=== PATIENT | male | born 1965 | race Caucasian/White ===

== ENCOUNTER 2016-07-20 02:17 | Emergency (ER) | payer MEDICAID, OTHER ==
[~2016-07-20] VITALS: Ht 170.2 cm; Wt 84.4 kg
[~2016-07-20 02:17] MED LIST: AMLO2.5T PO; FLUO20CA4 PO; GABA600T PO; LEVEMIR SQ; ZANT150T2 PO
[2016-07-20 02:23] VITALS: BP 149/107; PULSE 92; RESP 12; TEMP 98; O2SAT 98
[2016-07-20 02:39] VITALS: PULSE 92; RESP 18; TEMP 98; O2SAT 98
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
[2016-07-20] MEDS ORDERED: KETOROLAC TROMETHAMINE 60 MG/2 ML (IM) VIAL IM ONE (03:00)
[2016-07-20] MEDS ORDERED: PENICILLIN V POTASSIUM 500 MG TAB PO ONE (03:00)
[2016-07-20] MEDS ORDERED: PENI500T PO (03:34)
[2016-07-20] MEDS ORDERED: HYDR-3533 PO (03:34)
== END 2016-07-20 03:47 | disposition home or self-care (01) ==
LOC: PHED 02:17
DX: K08.89 Other specified disorders of teeth and supporting structures (principal); K04.7 Periapical abscess without sinus; E11.9 Type 2 diabetes mellitus without complications; I10 Essential (primary) hypertension; E78.00 Pure hypercholesterolemia, unspecified; K21.9 Gastro-esophageal reflux disease without esophagitis; K85.90 Acute pancreatitis without necrosis or infection, unspecified; F10.10 Alcohol abuse, uncomplicated; Z79.4 Long term (current) use of insulin; Z87.442 Personal history of urinary calculi
CPT/HCPCS: 96372; 99282; J1885

== ENCOUNTER 2016-08-02 16:43 | Emergency (ER) | payer SELFPAY ==
[~2016-08-02] VITALS: Ht 170.2 cm; Wt 83.0 kg
[~2016-08-02 16:43] MED LIST changes: +HYDR-3533 PO; +PENI500T PO
[2016-08-02 16:45] VITALS: BP 139/99; PULSE 105; RESP 17; TEMP 97.8; O2SAT 97
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
[2016-08-02] MEDS ORDERED: CLIN1CAP6 PO (17:48)
[2016-08-02] MEDS ORDERED: KETOROLAC TROMETHAMINE 60 MG/2 ML (IM) VIAL IM ONE (18:00)
== END 2016-08-02 18:07 | disposition home or self-care (01) ==
LOC: PHEFT 16:43
DX: L03.011 Cellulitis of right finger (principal); M25.511 Pain in right shoulder; I25.2 Old myocardial infarction; I10 Essential (primary) hypertension; E11.9 Type 2 diabetes mellitus without complications; E78.5 Hyperlipidemia, unspecified; E78.00 Pure hypercholesterolemia, unspecified; K21.9 Gastro-esophageal reflux disease without esophagitis; Z72.0 Tobacco use
CPT/HCPCS: 10060; 96372; 99284; J1885

== ENCOUNTER 2017-02-20 13:52 | Emergency (ER) | payer SELFPAY ==
[~2017-02-20] VITALS: Ht 170.2 cm; Wt 84.0 kg
[~2017-02-20 13:52] MED LIST changes: -AMLO2.5T PO; +CLIN300C5 PO; -FLUO20CA4 PO; -LEVEMIR SQ
[2017-02-20 13:53] VITALS: BP 152/106; PULSE 118; RESP 14; TEMP 98; O2SAT 96
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
[2017-02-20] MEDS ORDERED: ACETAMINOPHEN/HYDROcodone 325 MG/5 MG TAB PO ONE (15:30)
[2017-02-20] MEDS ORDERED: CLINDAMYCIN PHOS 600 MG/4 ML VIAL IM ONE (16:15)
[2017-02-20] MEDS ORDERED: CLIN300C5 PO (16:15)
== END 2017-02-20 18:16 | disposition home or self-care (01) ==
LOC: NEPD 13:52
DX: L02.413 Cutaneous abscess of right upper limb (principal); B95.62 Methicillin resistant Staphylococcus aureus infection as the cause of diseases classified elsewhere
CPT/HCPCS: 10061; 86403; 87070; 87186; 87205; 96372

== ENCOUNTER 2017-03-21 13:44 | Inpatient (IN) | payer OTHER ==
[~2017-03-21] VITALS: Ht 170.2 cm; Wt 91.6 kg
[2017-03-21 14:05] VITALS: BP 158/113; PULSE 111; RESP 16; TEMP 98.7; O2SAT 96
[2017-03-21 14:07] VITALS: O2SAT 96
[2017-03-21] MEDS ORDERED: LEVEMIR SQ (14:12)
[2017-03-21] MEDS ORDERED: PREV15CA20 PO (14:12)
[2017-03-21] MEDS ORDERED: SODIUM CHLORIDE 0.9% FLUSH 10 ML FLUSH IVF PRN (14:15)
[2017-03-21 14:21] LABS: AUTOMATED NEUTROPHIL # 4.4 TH/MM3 (1.8-7.7); BASOPHIL # 0.1 TH/MM3 (0-0.2); BASOPHIL % 1.1 % (0.0-2.0); EOSINOPHIL % 0.5 % (0.0-4.0); HEMATOCRIT 45.5 % (39.0-51.0); HEMOGLOBIN 14.5 GM/DL (13.0-17.0); LYMPH % 25.6 % (9.0-44.0); LYMPHOCYTE # 1.7 TH/MM3 (1.0-4.8); MEAN CELL VOLUME 94.6 FL (80.0-100.0); MEAN CORPUSCULAR HEMOGLOBIN 30.2 PG (27.0-34.0); MEAN CORPUSCULAR HGB CONC 31.9 % (32.0-36.0); MEAN PLATELET VOLUME 9.1 FL (7.0-11.0); MONO % 6.6 % (0.0-8.0); MONOCYTE # 0.4 TH/MM3 (0-0.9); NEUT % 66.2 % (16.0-70.0); PLATELET COUNT 146 TH/MM3 (150-450); RED BLOOD COUNT 4.81 MIL/MM3 (4.50-5.90); WHITE BLOOD COUNT 6.6 TH/MM3 (4.0-11.0)
[2017-03-21] MEDS ORDERED: IOHEXOL 350 MG/ML 10 ML VIAL (for RAD DIAG) IVCONTRAST ONE (14:25)
[2017-03-21 14:29] LABS: CHLORIDE 107 MEQ/L (98-107); SODIUM (NA) 136 MEQ/L (136-145)
[2017-03-21 14:33] LABS: ALBUMIN 2.7 GM/DL (3.4-5.0); BICARBONATE 20.8 MEQ/L (21.0-32.0); BLOOD UREA NITROGEN 17 MG/DL (7-18); CALCIUM 8.4 MG/DL (8.5-10.1); GLUCOSE,RANDOM 366 MG/DL (74-106)
[2017-03-21 14:35] LABS: INTERNATIONAL NORMALIZED RATIO 1.1 RATIO; PROTHROMBIN TIME - PATIENT 11.5 SEC (9.8-11.6)
[2017-03-21 14:36] LABS: ALT (GPT) 40 U/L (12-78); AST (GOT) 31 U/L (15-37)
[2017-03-21 14:37] LABS: CREATININE 0.93 MG/DL (0.60-1.30); GLOMERULAR FILTRATION RATE 85 ML/MIN (>89)
[2017-03-21 14:38] LABS: TOTAL BILIRUBIN ADULT 1.5 MG/DL (0.2-1.0); TOTAL PROTEIN 6.4 GM/DL (6.4-8.2)
[2017-03-21 14:39] LABS: ALKALINE PHOSPHATASE 116 U/L (45-117)
--- NOTE | 2017-03-21 14:53 | RADRPT ---
EXAM DATE/TIME: 03/21/2017 14:25 [facility] COMPARISON: CHEST SINGLE AP, March 21, 2017, 14:39. INDICATIONS : Shortness of breath. IV CONTRAST: 100 cc Omnipaque 350 (iohexol) IV RADIATION DOSE: 17.00 CTDIvol (mGy) MEDICAL HISTORY : Cardiovascular disease. Hypertension. Hypercholesterolemia.GERD,Pancreatitis, Diverticulitis. SURGICAL HISTORY : Inguinal hernia repair. ENCOUNTER: Initial ACUITY: 2 days PAIN SCALE: 4/10 LOCATION: Bilateral chest TECHNIQUE: Volumetric scanning of the chest was performed using a pulmonary embolism protocol MIP images were re constructed. Using automated exposure control and adjustment of the mA and/or kV according to patien t size, radiation dose was kept as low as reasonably achievable to obtain optimal diagnostic quality images. DICOM format image data is available electronically for review and comparison. Follow-up recommendations for detected pulmonary nodules are based at a minimum on nodule size and pa tient risk factors according to Fleischner Society Guidelines. FINDINGS: Examination is limited for evaluation of PE due to suboptimal bolus of contrast and the patient' s congestive heart failure. Small bilateral pleural effusions are seen. There is no evidence for PE f or technique. Lungs are grossly clear. Coronary artery calcifications are seen typically seen with CA D and need to be evaluated clinically. cardiomegaly seen. CONCLUSION: Bilateral pleural effusions and no definite pulmonary embolus, however somewhat limited exam due to s uboptimal bolus opacification of the pulmonary arteries. Deb Wade MD on March 21, 2017 at 14:49 Board Certified Radiologist. This report was verified electronically.
--- NOTE | 2017-03-21 14:58 | RADRPT ---
EXAM DATE/TIME: 03/21/2017 14:39 [facility] COMPARISON: CHEST SINGLE AP, July 22, 2015, 11:30. INDICATIONS : Shortness of breath and chest pain since last night. MEDICAL HISTORY : None. SURGICAL HISTORY : None. ENCOUNTER: Initial ACUITY: 1 day PAIN SCORE: 5/10 LOCATION: Bilateral chest across chest FINDINGS: Moderate cardiomegaly is present not present previously. Lungs are clear. CONCLUSION: Moderate enlargement of the cardiac silhouette. Deb Wade MD on March 21, 2017 at 14:56 Board Certified Radiologist. This report was verified electronically.
[2017-03-21] MEDS ORDERED: MORPHINE SULFATE 4 MG/ML INJ IV PUSH ONE (15:00)
[2017-03-21] MEDS ORDERED: FUROSEMIDE 20 MG/2 ML VIAL IV PUSH ONE (15:00)
[2017-03-21] MEDS ORDERED: LORazepam 2 MG/ML VIAL IV PUSH ONE (15:00)
[2017-03-21] MEDS ORDERED: ASPIRIN 325 MG TAB PO ONE (15:00)
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
[2017-03-21 15:22] VITALS: BP 126/99; PULSE 112; RESP 16; O2SAT 98
[2017-03-21] MEDS ORDERED: ONDANSETRON HCL 4 MG/2 ML VIAL IV PUSH ONE (15:45)
[2017-03-21] MEDS ORDERED: ONDANSETRON HCL 4 MG/2 ML VIAL IV PUSH PRN (16:15)
[2017-03-21] MEDS ORDERED: DOCUSATE SODIUM 100 MG CAP PO PRN ×2 (16:15→16:45)
[2017-03-21] MEDS ORDERED: SODIUM CHLORIDE 0.9% FLUSH 10 ML FLUSH IV FLUSH PRN (16:15)
[2017-03-21] MEDS ORDERED: NITROGLYCERIN 0.4 MG SL 25 TABS/BTL SL PRN (16:15)
--- NOTE | 2017-03-21 16:26 | HHI.HP ---
[facility] Service [facility] Primary Care Physician No Primary Care Physician Admission Diagnosis CHF; Pleural Effusions; Hyperglycemia Diagnoses: (1) Acute on chronic systolic congestive heart failure Diagnosis: Principal (2) Non-ST elevated myocardial infarction Diagnosis: Principal (3) Cardiomyopathy Diagnosis: Principal (4) Elevated troponin Diagnosis: Principal (5) HLD (hyperlipidemia) Diagnosis: Secondary (6) Diabetes Diagnosis: Secondary Chief Complaint: Lower extremity edema Travel History International Travel<30 Days: No Contact w/Intl Traveler <30 Da: No Traveled to Known Affected Are: No History of Present Illness 51 year-old male with known history of hypertension, hyperlipidemia, cardiomyopathy, chronic systolic congestive heart failure, diabetes, chronic back pain, peripheral neuropathy who presented to hospital as of edema, chest pain, shortness of breath. Patient states that 5 days ago he notices bilateral lower extremities/feet swelling and they've progressively got worse and very painful. Throughout the last 5 days he has had progressive swelling Creeping all way up his body up until its to his neck at this time. States that he is having severe chest pain whenever he took a deep breath. He came to emergency department today because he thought he was having swelling in his neck and he could not breathe and had severe shortness of breath. Patient had workup done emergency department and found to have elevated troponin, elevated BNP. Chest x -ray do not indicate any bony edema or congestive pattern. However CT scan did show pleural effusions. Patient indicates that the pain that experiencing his chest was only whenever he took a deep breath. Denies any radiation to his neck , back, shoulder, arms. Denies any nausea, vomiting, lightheadedness, dizziness. Upon review medical records does appear the patient has been admitted to hospital multiple times for chest discomfort. His last cardiac catheterization documented here was July 2015 in which he had global cardiomyopathy with ejection fraction 40% with clean coronary arteries. Further workup does indicate the patient also was positive for amphetamines. Patient denied any amphetamine use. Does indicate that he smoked marijuana occasionally. However patient could be having myocardial ischemia/spasm from amphetamine use. ER physician recommended patient be admitted the hospital. Review of Systems Respiratory: COMPLAINS OF: Shortness of breath Cardiovascular: COMPLAINS OF: Lower Extremity Edema Except as stated in HPI: all other systems reviewed are Neg Past Family Social History Past Medical History Hypertension Hyperlipidemia Cardiomyopathy with ejection fraction 30-35% with catheterization indicating 40 % ejection fraction Diabetes Peripheral neuropathy Chronic back pain Anxiety/Depression GERD with Peguero's esophagus History of pancreatitis Past Surgical History 07/20/15 Cardiac catheterization with moderately reduced global left ventricular systolic function at EF approximate 40%, normal coronary arteries Right inguinal hernia repair Reported Medications Reported Meds & Active Scripts Active Gabapentin 600 Mg Tab 600 Mg PO TID Reported Prevacid (Lansoprazole) 15 Mg Capdr 15 Mg PO DAILY Levemir Inj (Insulin Detemir) 1,000 unit/ 10 ML Vial 1 Units SQ Do not mix with any other Insulin. Allergies: Coded Allergies: Sulfa (Sulfonamide Antibiotics) (Unverified Allergy, Severe, Anaphylaxis, 02/20/17) lisinopril (Unverified Allergy, Severe, 02/20/17) Family History Reviewed is significant for heart disease Social History Patient was not forthcoming, he indicates that he quit smoking when cigarettes for $0.65 a pack, he states that he does smoke marijuana occasionally. Urine drug screen was positive for amphetamines. Denies any alcohol use Physical Exam Vital Signs Vital Signs Date Time Temp Pulse Resp B/P (MAP) Pulse Ox O2 Delivery O2 Flow Rate FiO2 03/21/17 15:22 112 16 126/99 (108) 98 Nasal Cannula 2.00 03/21/17 14:07 96 Nasal Cannula 2.00 03/21/17 14:07 96 Nasal Cannula 2.00 03/21/17 14:07 Nasal Cannula 22.00 96 03/21/17 14:05 98.7 111 16 158/113 (128) 96 Physical Exam GENERAL: Well-developed, well-nourished, in no acute distress. alert and orientated HEENT: Head is normocephalic without any lesions or masses noted. Facial features are symmetric. Eyes: Pupils equal round reactive to light. Extraocular muscles are intact. Conjunctivae were clear. Oropharyngeal: Pharynx without any erythema edema. Tongue is midline without deviation. Buccal mucosa is moist without any masses or lesions NECK: Supple without any masses. Trachea midline no deviation. No JVD, no bruits are appreciated CARDIAC: Regular rhythm, regular rate. S1/S2 are heard. No murmurs gallops or rubs. LUNGS: Clear to auscultation bilaterally. No wheeze, rhonchi or rales. No use of accessory muscles on inspiration or expiration. ABDOMEN: Soft, nontender. Nondistended. Bowel sounds heard in all 4 quadrants. No organomegaly or masses. Negative rebound, negative guarding EXTREMITIES: 2+ pitting edema noted bilateral lower extremities, pulses are equal bilaterally. No cyanosis or clubbing NEUROLOGY: Mood and affect appear appropriate. Cranial nerves II through XII grossly intact. Muscle strength 5/5 in upper and lower extremities bilaterally. Deep tendon reflexes are 2+ in upper and lower extremities bilaterally. Laboratory Laboratory Tests Test 03/21/17 14:15 03/21/17 14:16 03/21/17 15:15 White Blood Count 6.6 Red Blood Count 4.81 Hemoglobin 14.5 Hematocrit 45.5 Mean Corpuscular Volume 94.6 Mean Corpuscular Hemoglobin 30.2 Mean Corpuscular Hemoglobin Concent 31.9 Red Cell Distribution Width 14.0 Platelet Count 146 Mean Platelet Volume 9.1 Neutrophils (%) (Auto) 66.2 Lymphocytes (%) (Auto) 25.6 Monocytes (%) (Auto) 6.6 Eosinophils (%) (Auto) 0.5 Basophils (%) (Auto) 1.1 Neutrophils # (Auto) 4.4 Lymphocytes # (Auto) 1.7 Monocytes # (Auto) 0.4 Eosinophils # (Auto) 0.0 Basophils # (Auto) 0.1 CBC Comment DIFF FINAL Differential Comment Prothrombin Time 11.5 Prothromb Time International Ratio 1.1 Activated Partial Thromboplast Time 26.4 Blood Urea Nitrogen 17 Creatinine 0.93 Random Glucose 366 Total Protein 6.4 Albumin 2.7 Calcium Level 8.4 Magnesium Level 2.0 Alkaline Phosphatase 116 Aspartate Amino Transf (AST/SGOT) 31 Alanine Aminotransferase (ALT/SGPT) 40 Total Bilirubin 1.5 Sodium Level 136 Potassium Level 4.4 Chloride Level 107 Carbon Dioxide Level 20.8 Anion Gap 8 Estimat Glomerular Filtration Rate 85 Total Creatine Kinase 115 Creatine Kinase MB 4.4 Troponin I 0.80 B-Type Natriuretic Peptide 1796 Blood Gas Puncture Site RT RADIAL Blood Gas Patient Temperature 98.6 Blood Gas HCO3 22 Blood Gas Base Excess -1.6 Blood Gas Oxygen Saturation 96 Arterial Blood pH 7.46 Arterial Blood Partial Pressure CO2 31 Arterial Blood Partial Pressure O2 107 Arterial Blood Oxygen Content 20.5 Arterial Blood Carboxyhemoglobin 1.8 Arterial Blood Methemoglobin 0.8 Blood Gas Hemoglobin 15.1 Oxygen Delivery Device NASAL CANNULA Blood Gas Liter Flow 2 Urine Opiates Screen NEG Urine Barbiturates Screen NEG Urine Amphetamines Screen POS Urine Benzodiazepines Screen NEG Urine Cocaine Screen NEG Urine Cannabinoids Screen NEG Result Diagram: 03/21/17 1415 03/21/17 1415 Imaging Last Impressions Chest X-Ray 03/21/17 1402 Signed Impressions: Service Date/Time: Tuesday, March 21, 2017 14:39 - CONCLUSION: Moderate enlargement of the cardiac silhouette. Deb Wade MD CT Angiography 03/21/17 1402 Signed Impressions: Service Date/Time: Tuesday, March 21, 2017 14:25 - CONCLUSION: Bilateral pleural effusions and no definite pulmonary embolus, however somewhat limited exam due to suboptimal bolus opacification of the pulmonary arteries. Deb Wade MD [place] VTE Risk Assessment Caprini VTE Risk Assessment: Mod/High Risk (score >= 2) Caprini Risk Assessment Model Point Value = 1 Point Value = 2 Point Value = 3 Point Value = 5 Age 41-60 Minor surgery BMI > 25 kg/m2 Swollen legs Varicose veins or History of unexplained or recurrent spontaneous Oral contraceptives or hormone replacement Sepsis (< 1 month) Serious lung disease, including pneumonia (< 1 month) Abnormal pulmonary function Acute myocardial infarction Congestive heart failure (< 1 month) History of inflammatory bowel disease Medical patient at bed rest Age 61-74 Arthroscopic surgery Major open surgery (> 45 min) Laparoscopic surgery (> 45 min) Malignancy Confined to bed (> 72 hours) Immobilizing plaster cast Central venous access Age >= 75 History of VTE Family history of VTE Factor V Leiden Prothrombin [id number] Lupus anticoagulant Anticardiolipin antibodies Elevated serum homocysteine Heparin-induced thrombocytopenia Other congenital or acquired thrombophilia Stroke (< 1 month) Elective arthroplasty Hip, pelvis, or leg fracture Acute spinal cord injury (< 1 month) Prophylaxis Regimen Total Risk Factor Score Risk Level Prophylaxis Regimen 0-1 Low Early ambulation 2 Moderate Order ONE of the following: *Sequential Compression Device (SCD) *Heparin 5000 units SQ BID 3-4 Higher Order ONE of the following medications: *Heparin 5000 units SQ TID *Enoxaparin/Lovenox 40 mg SQ daily (WT < 150 kg, CrCl > 30 mL/min) *Enoxaparin/Lovenox 30 mg SQ daily (WT < 150 kg, CrCl > 10-29 mL/min) *Enoxaparin/Lovenox 30 mg SQ BID (WT < 150 kg, CrCl > 30 mL/min) AND/OR *Sequential Compression Device (SCD) 5 or more Highest Order ONE of the following medications: *Heparin 5000 units SQ TID (Preferred with Epidurals) *Enoxaparin/Lovenox 40 mg SQ daily (WT < 150 kg, CrCl > 30 mL/min) *Enoxaparin/Lovenox 30 mg SQ daily (WT < 150 kg, CrCl > 10-29 mL/min) *Enoxaparin/Lovenox 30 mg SQ BID (WT < 150 kg, CrCl > 30 mL/min) AND *Sequential Compression Device (SCD) Assessment and Plan Assessment and Plan Acute on chronic systolic congestive heart failure Patient presents with progressive swelling, elevated BNP, chest x-ray does not indicate any edema, CT does show pleural effusion Patient with severe cardiomyopathy with previous documented ejection fraction anywhere from 30-40% We'll continue her Lasix 40 mg IV every 12 hours We'll start beta scott and cannot start KSENIA inhibitor patient is allergic to lisinopril Obtain echocardiogram Strict input and output Elevated troponin, possible non-ST elevated myocardial infarction Continue trend cardiac enzymes and serial EKGs start heparin IV per protocol Start aspirin, beta scott, nitroglycerin Consult cardiology for further recommendations Check lipid panel Previous cardiac catheterization july 2015 indicating global hypokinesis with ejection fraction 40%. However clean coronary arteries Diabetes Accu-Cheks with sliding scale insulin Hemoglobin A1c Chronic back pain, peripheral neuropathy Resume gabapentin DVT prevention patient will be on heparin IV Physician Certification 2 Midnight Certification Type: Admission for Inpatient Services Order for Inpatient Services The services are ordered in accordance with Medicare regulations or non- Medicare payer requirements, as applicable. In the case of services not specified as inpatient-only, they are appropriately provided as inpatient services in accordance with the 2-midnight benchmark. Estimated LOS (days): 3 days is the estimated time the patient will need to remain in the hospital, assuming treatment plan goals are met and no additional complications. Post-Hospital Plan: Not yet determined Ramírez Samano Mar 21, 2017 16:26
[2017-03-21] MEDS ORDERED: DEXTROSE 50% IN WATER 50 ML VIAL(D50) IV PUSH PRN (16:30)
[2017-03-21] MEDS ORDERED: GLUCAGON 1 MG/ML VIAL OTHER PRN (16:30)
[2017-03-21] MEDS ORDERED: MAGNESIUM HYDROXIDE SUSP 30 ML CUP PO PRN (16:45)
[2017-03-21] MEDS ORDERED: HEPARIN SODIUM - IV 10,000 UNITS/10 ML VIAL IV PUSH ONE (17:00)
[2017-03-21] MEDS: INSULIN ASPART SUPPLEMENTAL SCALE SQ SCH ×2 (17:00→21:07)
[2017-03-21] MEDS: HEPARIN-D5W 25,000 U/250 ML 250 ML IV SCH (17:17)
--- NOTE | 2017-03-21 17:24 | MB ---
cc: HUY BRUMFIELD MD DATE OF CONSULTATION: 03/21/2017. REASON FOR CONSULTATION: Acute on chronic systolic congestive heart failure. HISTORY OF PRESENT ILLNESS: The patient is a pleasant 51-year-old gentleman with a history of chronic systolic suggestive heart failure who has not been taking any medications over at least the last several days but probably longer, and he says only medications he was taking was for the diabetes. He denies taking any cardiac medications. He presents with a week or so of worsening shortness of breath particularly on lying down. He was found to be in clinical congestive heart failure and admitted. His last echocardiogram showed ejection fraction of 30-35% and he had also had a cardiac catheterization done about a year and a half ago which confirmed a nonischemic cardiomyopathy with normal coronary arteries. The patient is a very difficult historian due to recent administration of narcotic and anxiolytic medications, but he denies other symptoms besides shortness of breath. PAST MEDICAL HISTORY: 1. Nonischemic cardiomyopathy as above. 2. Medication noncompliance. 3. Diabetes. 4. Chronic back pain. CURRENT MEDICATIONS: 1. Aspirin 325 milligrams daily. 2. Subcutaneous heparin. 3. Coreg 3.125 milligrams twice a day. 4. Lipitor 10 milligrams at bedtime. 5. Lasix 40 milligrams IV twice a day. ALLERGIES: 1. SULFA. 2. LISINOPRIL. PHYSICAL EXAMINATION: VITAL SIGNS: Afebrile, pulse 112, respiratory rate 16, blood pressure 129/99, satting 98% on two liters. GENERAL: In general, a pleasant well-appearing gentleman who is somnolent due to recent medications. NECK: No jugular venous distention. LUNGS: Decreased breath sounds in all zacarias. CARDIOVASCULAR: Regular rate and rhythm. No murmurs appreciated. ABDOMEN: Benign. EXTREMITIES: 1+ edema bilaterally. LABORATORY DATA: White count 6.6, hematocrit 45.5, platelet count 146,000. Sodium 136, potassium 4.4, chloride 107, bicarbonate 20.8, BUN 17, creatinine 0.93, glucose 366. Troponin 0.8. BNP is 1796. Toxicology is positive for amphetamines. EKGS: EKG shows sinus tachycardia with possible old inferior infarct and nonspecific S-T changes. IMPRESSION: 1. CHF. The patient has acute on chronic systolic suggestive heart failure in the setting of amphetamine use and medication noncompliance. He has been started on IV Lasix. I will add losartan to his regimen, but his long-term prognosis remains quite poor with his medication noncompliance, low ejection fraction and drug use. Further recommendations based on his clinical course. Thank you again for the opportunity to participate in this patient's care. MD MADHU Ellison/ASHLY /5:04 PM /5:12 PM
[2017-03-21] MEDS: NITROGLYCERIN 2% OINT 1 GM PACKET TOP SCH (18:00)
[2017-03-21 18:05] VITALS: BP 138/98
[2017-03-21] MEDS: GABAPENTIN 300 MG CAP PO SCH (18:26)
[2017-03-21] MEDS: FUROSEMIDE 40 MG/4 ML VIAL IVP SCH (18:27)
[2017-03-21 20:00] VITALS: BP 130/107; PULSE 103; RESP 20; TEMP 98.7; O2SAT 97
[2017-03-21 20:19] LABS: TROPONIN I 0.77 NG/ML (0.02-0.05)
[2017-03-21] MEDS: SODIUM CHLORIDE 0.9% FLUSH 10 ML FLUSH IV FLUSH SCH (21:07)
[2017-03-21] MEDS: CARVEDILOL 3.125 MG TAB PO SCH (21:07)
[2017-03-21] MEDS: ATORVASTATIN 10 MG TAB PO SCH (21:07)
[2017-03-21] MEDS: POTASSIUM CHLORIDE 10 MEQ CONTROLLED RELEASE TAB PO SCH (21:07)
[2017-03-21] MEDS ORDERED: HEPARIN SODIUM - IV 10,000 UNITS/10 ML VIAL IV PUSH PRN ×2 (22:15)
[2017-03-21 23:00] VITALS: PULSE 93
[2017-03-22] VITALS (9 sets, daily range): BP systolic 125–143; BP diastolic 96–107; PULSE 88–105; RESP 18–22; TEMP 96.3–98.2; O2SAT 95–99
[2017-03-22] MEDS: NITROGLYCERIN 2% OINT 1 GM PACKET TOP SCH ×4 (00:05→17:23)
[2017-03-22 02:33] LABS: TROPONIN I 0.76 NG/ML (0.02-0.05)
[2017-03-22 07:40] LABS: AUTOMATED NEUTROPHIL # 4.2 TH/MM3 (1.8-7.7); BASOPHIL # 0.1 TH/MM3 (0-0.2); BASOPHIL % 1.2 % (0.0-2.0); EOSINOPHIL # 0.1 TH/MM3 (0-0.4); EOSINOPHIL % 0.9 % (0.0-4.0); HEMOGLOBIN 14.6 GM/DL (13.0-17.0); LYMPH % 31.7 % (9.0-44.0); LYMPHOCYTE # 2.3 TH/MM3 (1.0-4.8); MEAN CELL VOLUME 94.6 FL (80.0-100.0); MEAN CORPUSCULAR HEMOGLOBIN 30.6 PG (27.0-34.0); MEAN CORPUSCULAR HGB CONC 32.4 % (32.0-36.0); MONO % 6.9 % (0.0-8.0); MONOCYTE # 0.5 TH/MM3 (0-0.9); NEUT % 59.3 % (16.0-70.0); PLATELET COUNT 154 TH/MM3 (150-450); RED BLOOD COUNT 4.76 MIL/MM3 (4.50-5.90); RED CELL DISTRIBUTION WIDTH 14.1 % (11.6-17.2); WHITE BLOOD COUNT 7.2 TH/MM3 (4.0-11.0)
[2017-03-22 07:53] LABS: CALCIUM 8.5 MG/DL (8.5-10.1)
[2017-03-22 07:54] LABS: BICARBONATE 25.5 MEQ/L (21.0-32.0)
[2017-03-22] MEDS: INSULIN ASPART SUPPLEMENTAL SCALE SQ SCH ×4 (08:00→21:46)
--- NOTE | 2017-03-22 08:00 | HHI.PR ---
Subjective Remarks Patient seen and examined today for follow-up on acute on chronic systolic congestive heart failure, elevated troponin, possible non-ST elevated myocardial infarction, amphetamine-induced vasospasm/ischemia. Patient lying in bed comfortable. Patient still complaining of shortness of breath. Denying any chest pain. Vital signs are stable, afebrile. No signs of hypoxia. Objective Vital Signs Date Time Temp Pulse Resp B/P (MAP) Pulse Ox O2 Delivery O2 Flow Rate FiO2 03/22/17 07:33 103 03/22/17 04:00 97.4 92 20 143/98 (113) 97 03/22/17 02:00 98 Nasal Cannula 2.00 03/22/17 00:00 97.7 90 20 125/96 (106) 98 03/21/17 23:00 93 03/21/17 20:00 98.7 103 20 130/107 (115) 97 03/21/17 18:05 101 18 138/98 (111) 97 3.00 03/21/17 15:22 112 16 126/99 (108) 98 Nasal Cannula 2.00 03/21/17 14:07 96 Nasal Cannula 2.00 03/21/17 14:07 96 Nasal Cannula 2.00 03/21/17 14:07 Nasal Cannula 22.00 96 03/21/17 14:05 98.7 111 16 158/113 (128) 96 I/O 03/21/17 03/21/17 03/21/17 03/22/17 03/22/17 03/22/17 07:00 15:00 23:00 07:00 15:00 23:00 Intake Total 480 ml Output Total 500 ml 650 ml Balance -500 ml -170 ml Intake Oral 480 ml Output Urine Total 500 ml 650 ml # Voids 1 Result Diagram: 03/22/17 0650 03/21/17 1415 Imaging Last Impressions Chest X-Ray 03/21/17 1402 Signed Impressions: Service Date/Time: Tuesday, March 21, 2017 14:39 - CONCLUSION: Moderate enlargement of the cardiac silhouette. Deb Wade MD CT Angiography 03/21/17 1402 Signed Impressions: Service Date/Time: Tuesday, March 21, 2017 14:25 - CONCLUSION: Bilateral pleural effusions and no definite pulmonary embolus, however somewhat limited exam due to suboptimal bolus opacification of the pulmonary arteries. Deb Wade MD Objective Remarks GENERAL: Well-developed, well-nourished, in no acute distress. alert and orientated HEENT: Head is normocephalic without any lesions or masses noted. Facial features are symmetric. Eyes: Extraocular muscles are intact. Conjunctivae were clear. NECK: Supple without any masses. Trachea midline no deviation. No JVD, CARDIAC: Regular rhythm, regular rate. S1/S2 are heard. No murmurs gallops or rubs. LUNGS: Clear to auscultation bilaterally. No wheeze, rhonchi or rales. No use of accessory muscles on inspiration or expiration. ABDOMEN: Soft, nontender. Nondistended. Bowel sounds heard in all 4 quadrants. No organomegaly or masses. Negative rebound, negative guarding EXTREMITIES: 2+ pitting edema noted in the lower extremities bilaterally, pulses are equal bilaterally. No cyanosis or clubbing NEUROLOGY: Mood and affect appear appropriate. Cranial nerves II through XII grossly intact. Moving all extremities, speech is clear A/P Assessment and Plan Acute on chronic systolic congestive heart failure Patient presents with progressive swelling, elevated BNP, chest x-ray does not indicate any edema, CT does show pleural effusion Patient with severe cardiomyopathy with previous documented ejection fraction anywhere from 30-40% Continue her Lasix 40 mg IV every 12 hours Continue Coreg Complaint Investigations Officer started patient on losartan and recommending continuation of Lasix Awaiting echocardiogram Strict input and output, according to records no significant fluid output or weight loss Poor prognosis secondary to medication noncompliance, severe cardiomyopathy, drug use Elevated troponin, possible non-ST elevated myocardial infarction, amphetamine induced ischemia/spasm Cardiac enzymes remain elevated and plateaued Serial EKGs were reviewed and show right bundle branch block without any changes Continue heparin IV per protocol Continue aspirin, beta scott, ARB, nitroglycerin, Statin Consulted cardiology for further recommendations Lipid panel is pending Previous cardiac catheterization july 2015 indicating global hypokinesis with ejection fraction 40%. However clean coronary arteries Diabetes Accu-Cheks with sliding scale insulin Hemoglobin A1c pending Elevated TSH, rule out hypothyroidism, sick euthyroid We'll check free T3/free T4 Chronic back pain, peripheral neuropathy Continue gabapentin DVT prevention Continue heparin IV Discharge Planning 24-48 hours depending on response to treatment and clearance by cardiology Ramírez Samano Mar 22, 2017 08:00
[2017-03-22 08:08] LABS: CREATININE 0.97 MG/DL (0.60-1.30)
[2017-03-22] MEDS: GABAPENTIN 300 MG CAP PO SCH ×3 (08:08→17:23)
[2017-03-22] MEDS: POTASSIUM CHLORIDE 10 MEQ CONTROLLED RELEASE TAB PO SCH ×2 (08:08→21:34)
[2017-03-22] MEDS: LOSARTAN 25 MG TAB PO SCH (08:08)
[2017-03-22] MEDS: CARVEDILOL 3.125 MG TAB PO SCH ×2 (08:08→21:34)
[2017-03-22] MEDS: FUROSEMIDE 40 MG/4 ML VIAL IVP SCH ×2 (08:08→17:23)
[2017-03-22] MEDS: SODIUM CHLORIDE 0.9% FLUSH 10 ML FLUSH IV FLUSH SCH ×2 (08:08→21:00)
[2017-03-22] MEDS: ASPIRIN EC 325 MG TABEC PO SCH (08:08)
[2017-03-22 10:51] LABS: CHOLESTEROL/ HDL RATIO 2.79 RATIO; FREE T3 2.18 PG/ML (2.18-3.98); FREE T4 0.92 NG/DL (0.76-1.46); HDL CHOLESTEROL 53.3 MG/DL (40.0-60.0)
[2017-03-22 12:46] LABS: HEMOGLOBIN A1C 11.5 % (4.3-6.0)
--- NOTE | 2017-03-22 12:48 | EKG ---
Date Performed: 03/21/2017 Time Performed: 13:54:46 PTAGE: 51 years EKG: SINUS TACHYCARDIA INDETERMINATE AXIS RIGHT BUNDLE BRANCH BLOCK ABNORMAL ECG Compared to PREVIOUS TRACING , sinus rate has increased. Previously seen precordial ST changes have i mproved. PREVIOUS TRACIN07/22/2015 12.41 DOCTOR: Scott Solis Interpretating Date/Time 03/22/2017 12:47:25
--- NOTE | 2017-03-22 12:48 | EKG ---
Date Performed: 03/21/2017 Time Performed: 19:45:42 PTAGE: 51 years EKG: Sinus rhythm INDETERMINATE AXIS RIGHT BUNDLE BRANCH BLOCK ABNORMAL ECG Compared to PREVIOUS TRACING , sinus rate is slower. PREVIOUS TRACIN03/21/2017 13.54 DOCTOR: Scott Solis Interpretating Date/Time 03/22/2017 12:48:00
--- NOTE | 2017-03-22 12:48 | EKG ---
Date Performed: 03/22/2017 Time Performed: 01:36:56 PTAGE: 51 years EKG: Sinus rhythm INDETERMINATE AXIS RIGHT BUNDLE BRANCH BLOCK LEFT POSTERIOR FASCICULAR BLOCK ABNORMAL ECG Since PREVIOUS TRACING , no significant change noted PREVIOUS TRACIN03/21/2017 19.45 DOCTOR: Scott Solis Interpretating Date/Time 03/22/2017 12:48:19
--- NOTE | 2017-03-22 16:53 | ECHRPT ---
Indication: CARDIOMYOPATHY CONCLUSIONS The left ventricular systolic function is severely reduced with an estimated ejection fraction in th e range of 20-25%. Normal left ventricular size. Wall thickness is normal. There is global left ventricular dysfunction. The right ventricle is mildly dilated. The right atrial size is mldj-xn-yxpdmpruzf dilated. Bynmo-tf-gfzy mitral valve regurgitation. There is mild tricuspid valve regurgitation. Trivial pulmonary valve regurgitation. BP: 135 / 97 HR: 110 Rhythm: MEASUREMENTS (Male / Female) Normal Values Technical Quality:Good 2D ECHO LV Diastolic Diameter PLAX 5.2 cm 4.2 - 5.9 / 3.9 - 5.3 cm LV Systolic Diameter PLAX 4.6 cm IVS Diastolic Thickness 1.1 cm 0.6 - 1.0 / 0.6 - 0.9 cm LVPW Diastolic Thickness 1.0 cm 0.6 - 1.0 / 0.6 - 0.9 cm LV Relative Wall Thickness 0.4 RV Internal Dim ED PLAX 4.2 cm LVOT Diameter 1.9 cm LA Systolic Diameter LX 4.0 cm 3.0 - 4.0 / 2.7 - 3.8 cm LV Ejection Fraction MOD 4C 27.8 % LV Cardiac Index MOD 4C 1475.1 cm/minm LV Ejection Fraction 4C AL 30.2 % LV Cardiac Index 4C AL 1662.9 cm/minm M-MODE Aortic Root Diameter MM 3.0 cm LA Systolic Diameter MM 3.8 cm LA Ao Ratio MM 1.3 AV Cusp Separation MM 1.5 cm DOPPLER AV Peak Velocity 92.3 cm/s AV Peak Gradient 3.4 mmHg LVOT Peak Velocity 53.3 cm/s LVOT Peak Gradient 1.1 mmHg AV Area Cont Eq pk 1.6 cm MV Area PHT 4.7 cm Mitral E Point Velocity 73.5 cm/s Mitral A Point Velocity 73.1 cm/s Mitral E to A Ratio 1.0 LV E' Lateral Velocity 4.9 cm/s Mitral E to LV E' Lateral Ratio 15.1 TR Peak Velocity 323.0 cm/s TR Peak Gradient 41.7 mmHg Right Atrial Pressure 10.0 mmHg Pulmonary Artery Systolic Pressu 51.7 mmHg Right Ventricular Systolic Press 51.7 mmHg FINDINGS LEFT VENTRICLE The left ventricular systolic function is severely reduced with an estimated ejection fraction in th e range of 20-25%. Normal left ventricular size. Wall thickness is normal. There is global left ventricular dysfunction. RIGHT VENTRICLE The right ventricle is mildly dilated. LEFT ATRIUM The left atrial size is normal. RIGHT ATRIUM The right atrial size is eart-wt-uilgjqabbg dilated. ATRIAL SEPTUM Normal atrial septal thickness without atrial level shunting by limited color doppler interrogation. AORTA The aortic root and proximal ascending aorta are normal in size on limited imaging. MITRAL VALVE Structurally normal mitral valve. Meagd-dk-gsuf mitral valve regurgitation. AORTIC VALVE Trileaflet aortic valve. No aortic valve stenosis or regurgitation. TRICUSPID VALVE Structurally normal tricuspid valve. There is mild tricuspid valve regurgitation. PULMONARY VALVE Trivial pulmonary valve regurgitation. VESSELS The inferior vena cava is dilated. PERICARDIUM No pericardial effusion. Scott Solis MD (Electronically Signed) Final Date:22 March 2017 16:51
[2017-03-22] MEDS: CALCIUM CARBONATE 500 MG CHEWABLE TAB CHEW PRN ×2 (17:24→21:34)
[2017-03-22] MEDS: HEPARIN-D5W 25,000 U/250 ML 250 ML IV SCH (17:27)
--- NOTE | 2017-03-22 18:04 | PD.CARD.PN ---
Subjective Subjective Remarks Pt resting in bed comfortably, but says he still cannot get a full breath, though improved from yesterday. Objective Medications Current Medications Medications (Trade) Dose Ordered Sig/Marybel Route Start Time Stop Time Status Last Admin (NS Flush) 2 ml BID IV FLUSH 03/21/17 21:00 (NS Flush) 2 ml UNSCH PRN IV FLUSH 03/21/17 16:15 (Ecotrin Ec) 325 mg DAILY PO 03/22/17 09:00 03/22/17 08:08 (Nitroglycerin 2% Oint) 0.5 inch Q6HR TOP 03/21/17 18:00 03/22/17 17:23 (Nitrostat Sl) 0.4 mg Q5M PRN SL 03/21/17 16:15 (Tylenol) 650 mg Q6H PRN PO 03/21/17 16:15 (Colace) 100 mg BID PRN PO 03/21/17 16:15 (Xanax) 0.25 mg Q8H PRN PO 03/21/17 16:15 (Zofran Inj) 4 mg Q6H PRN IV PUSH 03/21/17 16:15 (Coreg) 3.125 mg BID PO 03/21/17 21:00 03/22/17 08:08 (Lipitor) 10 mg HS PO 03/21/17 21:00 03/21/17 21:07 (Heparin Inj) 5,000 units UNSCH PRN IV PUSH 03/21/17 22:15 (Heparin Inj) 2,500 units UNSCH PRN IV PUSH 03/21/17 22:15 Heparin Sodium/ Dextrose 250 ml @ 10 mls/hr TITRATE IV 03/21/17 17:00 03/22/17 17:27 (Lasix Inj) 40 mg BID@09,18 IVP 03/21/17 18:00 03/22/17 17:23 (KCl) 10 meq BID PO 03/21/17 21:00 03/22/17 08:08 (Neurontin) 600 mg TID PO 03/21/17 18:00 03/22/17 17:23 (D50w (Vial) Inj) 50 ml UNSCH PRN IV PUSH 03/21/17 16:30 (Glucagon Inj) 1 mg UNSCH PRN OTHER 03/21/17 16:30 (NovoLOG SUPPLEMENTAL SCALE) 1 ACHS SLIDING SCALE SQ 03/21/17 17:00 03/22/17 17:00 (Milk Of Magnesia Liq) 30 ml DAILY PRN PO 03/21/17 16:45 (Tums Chew) 1,000 mg TID PRN CHEW 03/21/17 16:45 03/22/17 17:24 (Cozaar) 25 mg DAILY PO 03/22/17 09:00 03/22/17 08:08 Vital Signs / I&O Vital Signs Date Time Temp Pulse Resp B/P (MAP) Pulse Ox O2 Delivery O2 Flow Rate FiO2 03/22/17 16:00 98.2 98 22 141/106 (118) 96 03/22/17 09:24 99 Nasal Cannula 2.00 03/22/17 07:57 88 18 135/97 (110) 99 03/22/17 07:33 103 03/22/17 04:00 97.4 92 20 143/98 (113) 97 03/22/17 02:00 98 Nasal Cannula 2.00 03/22/17 00:00 97.7 90 20 125/96 (106) 98 03/21/17 23:00 93 03/21/17 20:00 98.7 103 20 130/107 (115) 97 03/21/17 18:05 101 18 138/98 (111) 97 3.00 I/O 03/21/17 03/21/17 03/21/17 03/22/17 03/22/17 03/22/17 07:00 15:00 23:00 07:00 15:00 23:00 Intake Total 480 ml 950 ml Output Total 500 ml 650 ml 1050 ml Balance -500 ml -170 ml -100 ml Intake Oral 480 ml 950 ml Output Urine Total 500 ml 650 ml 1050 ml # Voids 1 # Bowel Movements 0 Physical Exam GENERAL: This is a well-nourished, well-developed patient, in no apparent distress. CARDIOVASCULAR: Regular rate and rhythm without murmurs, gallops, or rubs. RESPIRATORY: Clear to auscultation. Breath sounds equal bilaterally. No wheezes , rales, or rhonchi. GASTROINTESTINAL: Abdomen soft, non-tender, nondistended. Normal active bowel sounds MUSCULOSKELETAL: Extremities without clubbing, cyanosis, or edema. NEURO: Alert & Oriented x4 to person, place, time, situation. Moves all ext x4 Laboratory Laboratory Tests Test 03/21/17 19:50 03/21/17 22:43 03/22/17 01:45 03/22/17 05:30 Hemoglobin A1c 11.5 % Total Creatine Kinase 102 U/L 100 U/L Creatine Kinase MB 4.0 NG/ML Troponin I 0.77 NG/ML 0.76 NG/ML Thyroid Stimulating Hormone 3rd Gen 9.990 uIU/ML Activated Partial Thromboplast Time 43.2 SEC 40.1 SEC Test 03/22/17 06:50 White Blood Count 7.2 TH/MM3 Red Blood Count 4.76 MIL/MM3 Hemoglobin 14.6 GM/DL Hematocrit 45.0 % Mean Corpuscular Volume 94.6 FL Mean Corpuscular Hemoglobin 30.6 PG Mean Corpuscular Hemoglobin Concent 32.4 % Red Cell Distribution Width 14.1 % Platelet Count 154 TH/MM3 Mean Platelet Volume 9.0 FL Neutrophils (%) (Auto) 59.3 % Lymphocytes (%) (Auto) 31.7 % Monocytes (%) (Auto) 6.9 % Eosinophils (%) (Auto) 0.9 % Basophils (%) (Auto) 1.2 % Neutrophils # (Auto) 4.2 TH/MM3 Lymphocytes # (Auto) 2.3 TH/MM3 Monocytes # (Auto) 0.5 TH/MM3 Eosinophils # (Auto) 0.1 TH/MM3 Basophils # (Auto) 0.1 TH/MM3 CBC Comment DIFF FINAL Differential Comment Blood Urea Nitrogen 18 MG/DL Creatinine 0.97 MG/DL Random Glucose 183 MG/DL Calcium Level 8.5 MG/DL Sodium Level 139 MEQ/L Potassium Level 4.2 MEQ/L Chloride Level 106 MEQ/L Carbon Dioxide Level 25.5 MEQ/L Anion Gap 8 MEQ/L Estimat Glomerular Filtration Rate 81 ML/MIN Triglycerides Level 98 MG/DL Cholesterol Level 149 MG/DL LDL Cholesterol 76 MG/DL HDL Cholesterol 53.3 MG/DL Cholesterol/HDL Ratio 2.79 RATIO Free Thyroxine 0.92 NG/DL Free Triiodothyronine (T3) pg/dL 2.18 PG/ML Imaging Last Impressions Chest X-Ray 03/21/17 1402 Signed Impressions: Service Date/Time: Tuesday, March 21, 2017 14:39 - CONCLUSION: Moderate enlargement of the cardiac silhouette. Deb Wade MD CT Angiography 03/21/17 1402 Signed Impressions: Service Date/Time: Tuesday, March 21, 2017 14:25 - CONCLUSION: Bilateral pleural effusions and no definite pulmonary embolus, however somewhat limited exam due to suboptimal bolus opacification of the pulmonary arteries. Deb Wade MD Assessment and Plan Problem List: (1) Systolic CHF ICD Codes: I50.20 - Unspecified systolic (congestive) heart failure Plan: continue current tx (2) NICM (nonischemic cardiomyopathy) ICD Codes: I42.8 - Other cardiomyopathies Plan: Restarted cozar and BB (3) Noncompliance ICD Codes: Z91.19 - Patient's noncompliance with other medical treatment and regimen Plan: Advised compliance at length; makes prognosis quite poor. (4) Elevated troponin ICD Codes: R79.89 - Other specified abnormal findings of blood chemistry Status: Acute Plan: Due to chf, no cad by recent cath (5) Tobacco use ICD Codes: Z72.0 - Tobacco use Status: Acute Problem Qualifiers (1) Systolic CHF: Qualified Codes: I50.23 - Acute on chronic systolic (congestive) heart failure Scott Solis MD Mar 22, 2017 18:04
[2017-03-22] MEDS: ATORVASTATIN 10 MG TAB PO SCH (21:34)
[2017-03-23] VITALS (9 sets, daily range): BP systolic 99–131; BP diastolic 71–95; PULSE 89–104; RESP 18–24; TEMP 96.5–98.9; O2SAT 91–98
[2017-03-23] MEDS: NITROGLYCERIN 2% OINT 1 GM PACKET TOP SCH ×4 (00:26→19:21)
[2017-03-23] MEDS: ALPRAZolam 0.25 MG TAB PO PRN ×2 (06:33→19:28)
[2017-03-23] MEDS: INSULIN ASPART SUPPLEMENTAL SCALE SQ SCH ×6 (08:00→21:00)
[2017-03-23] MEDS: GABAPENTIN 300 MG CAP PO SCH ×3 (09:36→19:21)
[2017-03-23] MEDS: FUROSEMIDE 40 MG/4 ML VIAL IVP SCH ×2 (09:36→19:20)
[2017-03-23] MEDS: LOSARTAN 25 MG TAB PO SCH (09:37)
[2017-03-23] MEDS: SODIUM CHLORIDE 0.9% FLUSH 10 ML FLUSH IV FLUSH SCH ×2 (09:37→20:57)
[2017-03-23] MEDS: POTASSIUM CHLORIDE 10 MEQ CONTROLLED RELEASE TAB PO SCH ×2 (09:37→20:57)
[2017-03-23] MEDS: CARVEDILOL 3.125 MG TAB PO SCH ×2 (09:37→20:57)
[2017-03-23] MEDS: ASPIRIN EC 325 MG TABEC PO SCH (09:37)
--- NOTE | 2017-03-23 10:03 | HHI.PR ---
Subjective Remarks In bed feels tired. No n/v/d/c. Denies chest pain, sob improved. Will do O2 walking test Objective Vitals Vital Signs Date Time Temp Pulse Resp B/P (MAP) Pulse Ox O2 Delivery O2 Flow Rate FiO2 03/23/17 08:00 96.5 89 24 131/84 (100) 98 03/23/17 07:35 93 Nasal Cannula 2.00 03/23/17 06:30 97 Nasal Cannula 2.00 03/23/17 00:00 96.8 99 18 131/95 (107) 96 03/22/17 20:00 97 Nasal Cannula 2.00 03/22/17 20:00 96.3 105 19 137/107 (117) 97 03/22/17 20:00 101 03/22/17 19:35 95 Nasal Cannula 2.00 03/22/17 16:00 98.2 98 22 141/106 (118) 96 I/O 03/22/17 03/22/17 03/22/17 03/23/17 03/23/17 03/23/17 07:00 15:00 23:00 07:00 15:00 23:00 Intake Total 480 ml 950 ml 79 ml 82 ml Output Total 650 ml 1050 ml 2475 ml 400 ml Balance -170 ml -100 ml 79 ml -2393 ml -400 ml Intake Oral 480 ml 950 ml IV Total 79 ml 82 ml Output Urine Total 650 ml 1050 ml 2475 ml 400 ml # Bowel Movements 0 Result Diagram: 03/22/17 0650 03/22/17 0650 Imaging Last Impressions Chest X-Ray 03/21/17 1402 Signed Impressions: Service Date/Time: Tuesday, March 21, 2017 14:39 - CONCLUSION: Moderate enlargement of the cardiac silhouette. Deb Wade MD CT Angiography 03/21/17 1402 Signed Impressions: Service Date/Time: Tuesday, March 21, 2017 14:25 - CONCLUSION: Bilateral pleural effusions and no definite pulmonary embolus, however somewhat limited exam due to suboptimal bolus opacification of the pulmonary arteries. Deb Wade MD Objective Remarks GENERAL: Well-developed, well-nourished, in no acute distress. alert and orientated HEENT: Head is normocephalic without any lesions or masses noted. Facial features are symmetric. Eyes: Extraocular muscles are intact. Conjunctivae were clear. NECK: Supple without any masses. Trachea midline no deviation. No JVD, CARDIAC: Regular rhythm, regular rate. S1/S2 are heard. No murmurs gallops or rubs. LUNGS: Clear to auscultation bilaterally. No wheeze, rhonchi or rales. No use of accessory muscles on inspiration or expiration. ABDOMEN: Soft, nontender. Nondistended. Bowel sounds heard in all 4 quadrants. No organomegaly or masses. Negative rebound, negative guarding EXTREMITIES: 2+ pitting edema noted in the lower extremities bilaterally, pulses are equal bilaterally. No cyanosis or clubbing NEUROLOGY: Mood and affect appear appropriate. Cranial nerves II through XII grossly intact. Moving all extremities, speech is clear A/P Problem List: (1) Acute on chronic systolic congestive heart failure ICD Code: I50.23 - Acute on chronic systolic (congestive) heart failure (2) Non-ST elevated myocardial infarction ICD Code: I21.4 - Non-ST elevation (NSTEMI) myocardial infarction (3) Cardiomyopathy ICD Code: I42.9 - Cardiomyopathy, unspecified (4) Elevated troponin ICD Code: R79.89 - Other specified abnormal findings of blood chemistry Status: Acute (5) HLD (hyperlipidemia) ICD Code: E78.5 - Hyperlipidemia, unspecified Status: Acute (6) Diabetes ICD Code: E11.9 - Type 2 diabetes mellitus without complications Assessment and Plan Acute on chronic systolic congestive heart failure. Patient presents with progressive swelling, elevated BNP, chest x-ray does not indicate any edema, CT does show pleural effusion Patient with severe cardiomyopathy with previous documented ejection fraction anywhere from 30-40% Continue her Lasix 40 mg IV every 12 hours Continue Coreg Junior Software Engineer started patient on losartan and recommending continuation of Lasix Echocardiogram with low EF 20 %. Strict input and output, according to records no significant fluid output or weight loss Poor prognosis secondary to medication noncompliance, severe cardiomyopathy, drug use Elevated troponin, possible non-ST elevated myocardial infarction, amphetamine induced ischemia/spasm Cardiac enzymes remain elevated and plateaued Serial EKGs were reviewed and show right bundle branch block without any changes Continue heparin IV per protocol Continue aspirin, beta scott, ARB, nitroglycerin, Statin Consulted cardiology for further recommendations Lipid panel is pending Previous cardiac catheterization july 2015 indicating global hypokinesis with ejection fraction 40%. However clean coronary arteries Diabetes Accu-Cheks with sliding scale insulin Hemoglobin A1c pending Elevated TSH, rule out hypothyroidism, sick euthyroid We'll check free T3/free T4 Chronic back pain, peripheral neuropathy Continue gabapentin DVT prevention Continue heparin IV Discharge Planning Improving. patient need compliance with meds. To follow up as OP with PCP and consultants Deepika Hugo MD Mar 23, 2017 10:03
--- NOTE | 2017-03-23 10:10 | PD.CARD.PN ---
Subjective Subjective Remarks Pt resting in bed comfortably, but says he still cannot get a full breath, though improved from yesterday; his symptoms do seem a bit out of proportion given his diuresis Objective Medications Current Medications Medications (Trade) Dose Ordered Sig/Marybel Route Start Time Stop Time Status Last Admin (NS Flush) 2 ml BID IV FLUSH 03/21/17 21:00 03/23/17 09:37 (NS Flush) 2 ml UNSCH PRN IV FLUSH 03/21/17 16:15 (Ecotrin Ec) 325 mg DAILY PO 03/22/17 09:00 03/23/17 09:37 (Nitroglycerin 2% Oint) 0.5 inch Q6HR TOP 03/21/17 18:00 03/23/17 06:08 (Nitrostat Sl) 0.4 mg Q5M PRN SL 03/21/17 16:15 (Tylenol) 650 mg Q6H PRN PO 03/21/17 16:15 (Colace) 100 mg BID PRN PO 03/21/17 16:15 (Xanax) 0.25 mg Q8H PRN PO 03/21/17 16:15 03/23/17 06:33 (Zofran Inj) 4 mg Q6H PRN IV PUSH 03/21/17 16:15 (Coreg) 3.125 mg BID PO 03/21/17 21:00 03/23/17 09:37 (Lipitor) 10 mg HS PO 03/21/17 21:00 03/22/17 21:34 (Heparin Inj) 5,000 units UNSCH PRN IV PUSH 03/21/17 22:15 (Heparin Inj) 2,500 units UNSCH PRN IV PUSH 03/21/17 22:15 Heparin Sodium/ Dextrose 250 ml @ 10 mls/hr TITRATE IV 03/21/17 17:00 03/22/17 17:27 (Lasix Inj) 40 mg BID@09,18 IVP 03/21/17 18:00 03/23/17 09:36 (KCl) 10 meq BID PO 03/21/17 21:00 03/23/17 09:37 (Neurontin) 600 mg TID PO 03/21/17 18:00 03/23/17 09:36 (D50w (Vial) Inj) 50 ml UNSCH PRN IV PUSH 03/21/17 16:30 (Glucagon Inj) 1 mg UNSCH PRN OTHER 03/21/17 16:30 (NovoLOG SUPPLEMENTAL SCALE) 1 ACHS SLIDING SCALE SQ 03/21/17 17:00 03/23/17 09:59 (Milk Of Magnesia Liq) 30 ml DAILY PRN PO 03/21/17 16:45 (Tums Chew) 1,000 mg TID PRN CHEW 03/21/17 16:45 03/22/17 21:34 (Cozaar) 25 mg DAILY PO 03/22/17 09:00 03/23/17 09:37 Vital Signs / I&O Vital Signs Date Time Temp Pulse Resp B/P (MAP) Pulse Ox O2 Delivery O2 Flow Rate FiO2 03/23/17 08:00 96.5 89 24 131/84 (100) 98 03/23/17 07:35 93 Nasal Cannula 2.00 03/23/17 06:30 97 Nasal Cannula 2.00 03/23/17 00:00 96.8 99 18 131/95 (107) 96 03/22/17 20:00 97 Nasal Cannula 2.00 03/22/17 20:00 96.3 105 19 137/107 (117) 97 03/22/17 20:00 101 03/22/17 19:35 95 Nasal Cannula 2.00 03/22/17 16:00 98.2 98 22 141/106 (118) 96 I/O 03/22/17 03/22/17 03/22/17 03/23/17 03/23/17 03/23/17 07:00 15:00 23:00 07:00 15:00 23:00 Intake Total 480 ml 950 ml 79 ml 82 ml Output Total 650 ml 1050 ml 2475 ml 400 ml Balance -170 ml -100 ml 79 ml -2393 ml -400 ml Intake Oral 480 ml 950 ml IV Total 79 ml 82 ml Output Urine Total 650 ml 1050 ml 2475 ml 400 ml # Bowel Movements 0 Physical Exam GENERAL: This is a well-nourished, well-developed patient, in no apparent distress. CARDIOVASCULAR: Regular rate and rhythm without murmurs, gallops, or rubs. RESPIRATORY: Clear to auscultation. Breath sounds equal bilaterally. No wheezes , rales, or rhonchi. GASTROINTESTINAL: Abdomen soft, non-tender, nondistended. Normal active bowel sounds MUSCULOSKELETAL: Extremities without clubbing, cyanosis, or edema. NEURO: Alert & Oriented x4 to person, place, time, situation. Moves all ext x4 Imaging Last Impressions Chest X-Ray 03/21/17 1402 Signed Impressions: Service Date/Time: Tuesday, March 21, 2017 14:39 - CONCLUSION: Moderate enlargement of the cardiac silhouette. Deb Wade MD CT Angiography 03/21/17 1402 Signed Impressions: Service Date/Time: Tuesday, March 21, 2017 14:25 - CONCLUSION: Bilateral pleural effusions and no definite pulmonary embolus, however somewhat limited exam due to suboptimal bolus opacification of the pulmonary arteries. Deb Wade MD Assessment and Plan Problem List: (1) Systolic CHF ICD Codes: I50.20 - Unspecified systolic (congestive) heart failure Plan: still notes dyspnea so will continue current therapy, will repeat bnp tomorrow (2) NICM (nonischemic cardiomyopathy) ICD Codes: I42.8 - Other cardiomyopathies Plan: Restarted cozar and BB (3) Noncompliance ICD Codes: Z91.19 - Patient's noncompliance with other medical treatment and regimen (4) Elevated troponin ICD Codes: R79.89 - Other specified abnormal findings of blood chemistry Status: Acute (5) Tobacco use ICD Codes: Z72.0 - Tobacco use Status: Acute (6) Shortness of breath ICD Codes: R06.02 - Shortness of breath Plan: will get resp treatments Problem Qualifiers (1) Systolic CHF: Qualified Codes: I50.23 - Acute on chronic systolic (congestive) heart failure Scott Solis MD Mar 23, 2017 10:10
[2017-03-23] MEDS ORDERED: RESP: ALBUTEROL 0.63 MG/3 ML NEB (PRN) NEB (10:15)
[2017-03-23] MEDS: ACETAMINOPHEN 325 MG TAB PO PRN ×2 (13:49→19:28)
[2017-03-23] MEDS: ATORVASTATIN 10 MG TAB PO SCH (20:57)
[2017-03-24] VITALS: BP 113/83; PULSE 95; RESP 20; TEMP 96.5; O2SAT 93
[2017-03-24] MEDS: NITROGLYCERIN 2% OINT 1 GM PACKET TOP SCH ×2 (00:12→05:41)
[2017-03-24] MEDS: ACETAMINOPHEN 325 MG TAB PO PRN (01:46)
[2017-03-24 04:00] VITALS: BP 131/92; PULSE 94; RESP 20; TEMP 96.4; O2SAT 96
[2017-03-24 06:21] LABS: BICARBONATE 32.8 MEQ/L (21.0-32.0); CALCIUM 8.3 MG/DL (8.5-10.1)
[2017-03-24 07:15] VITALS: O2SAT 96
[2017-03-24 08:00] VITALS: BP 120/113; PULSE 97; RESP 20; TEMP 96.7; O2SAT 96
[2017-03-24] MEDS: ALPRAZolam 0.25 MG TAB PO PRN (08:08)
[2017-03-24] MEDS: GABAPENTIN 300 MG CAP PO SCH ×2 (08:08→13:22)
[2017-03-24] MEDS: CARVEDILOL 3.125 MG TAB PO SCH (08:09)
[2017-03-24] MEDS: LOSARTAN 25 MG TAB PO SCH (08:09)
[2017-03-24] MEDS: ASPIRIN EC 325 MG TABEC PO SCH (08:09)
[2017-03-24] MEDS: FUROSEMIDE 40 MG/4 ML VIAL IVP SCH (08:10)
[2017-03-24] MEDS: POTASSIUM CHLORIDE 10 MEQ CONTROLLED RELEASE TAB PO SCH (08:10)
[2017-03-24] MEDS: SODIUM CHLORIDE 0.9% FLUSH 10 ML FLUSH IV FLUSH SCH (08:12)
[2017-03-24] MEDS: CALCIUM CARBONATE 500 MG CHEWABLE TAB CHEW PRN (08:19)
[2017-03-24] MEDS: INSULIN ASPART SUPPLEMENTAL SCALE SQ SCH ×2 (08:34→13:27)
[2017-03-24 09:00] VITALS: BP 99/71
--- NOTE | 2017-03-24 10:23 | HHI.PR ---
Subjective Remarks Follow-up congestive heart failure, and NSTEMI and cardiomyopathy. Patient seen and examined lying in bed comfortably, states he had a bout of anxiety overnight, Xanax has helped, patient states that he gets short of breath with his anxiety. Patient expresses concern regarding disease process and inability to get medications in the outpatient setting due to no insurance. Denies any pain. Denies any shortness of breath at this time. Vital signs are stable. Afebrile. Objective Vitals Vital Signs Date Time Temp Pulse Resp B/P (MAP) Pulse Ox O2 Delivery O2 Flow Rate FiO2 03/24/17 08:00 96.7 97 20 120/113 (115) 96 03/24/17 07:15 96 21 03/24/17 04:00 96.4 94 20 131/92 (105) 96 03/24/17 00:00 96.5 95 20 113/83 (93) 93 03/23/17 23:00 94 03/23/17 21:40 94 21 03/23/17 20:00 98.9 100 20 99/71 (80) 94 03/23/17 15:59 97.5 98 20 113/82 (92) 93 03/23/17 14:49 19 03/23/17 13:23 91 21 03/23/17 12:00 98.1 99 20 120/83 (95) 96 I/O 03/23/17 03/23/17 03/23/17 03/24/17 03/24/17 03/24/17 06:59 14:59 22:59 06:59 14:59 22:59 Intake Total 82 ml 1010 ml 580 ml 480 ml Output Total 2475 ml 3700 ml 1000 ml Balance -2393 ml -2690 ml 580 ml -520 ml Intake Oral 960 ml 580 ml 480 ml IV Total 82 ml 50 ml Output Urine Total 2475 ml 3700 ml 1000 ml # Voids 3 # Bowel Movements 1 0 0 Result Diagram: 03/22/17 0650 03/24/17 0535 Imaging Last Impressions Chest X-Ray 03/21/171401 Signed Impressions: Service Date/Time: Tuesday, March 21, 2017 14:39 - CONCLUSION: Moderate enlargement of the cardiac silhouette. Deb Wade MD CT Angiography 03/21/17 1402 Signed Impressions: Service Date/Time: Tuesday, March 21, 2017 14:25 - CONCLUSION: Bilateral pleural effusions and no definite pulmonary embolus, however somewhat limited exam due to suboptimal bolus opacification of the pulmonary arteries. Deb Wade MD Objective Remarks GENERAL: Well-nourished, well-developed patient in NAD. SKIN: Warm and dry. No rash. HEAD: Normocephalic. Atraumatic. EYES: Pupils equal and round. No scleral icterus. No injection or drainage. ENT: No nasal bleeding or discharge. Mucous membranes pink and moist. NECK: Supple. Trachea midline. CARDIOVASCULAR: Regular rate and rhythm. S1, S2 noted. No murmur appreciated. RESPIRATORY: No accessory muscle use. Clear to auscultation. Breath sounds equal bilaterally. GASTROINTESTINAL: Abdomen soft, non-tender, nondistended. Normoactive bowel sounds x4. MUSCULOSKELETAL: No obvious deformities. Extremities without clubbing, cyanosis , or edema. NEUROLOGICAL: Awake and alert. No obvious cranial nerve deficits. Motor grossly within normal limits. 5/5 muscle strength in bilateral upper and lower extremities. Normal speech. PSYCHIATRIC: Appropriate mood and affect; insight and judgment normal. A/P Problem List: (1) Acute on chronic systolic congestive heart failure ICD Code: I50.23 - Acute on chronic systolic (congestive) heart failure (2) Non-ST elevated myocardial infarction ICD Code: I21.4 - Non-ST elevation (NSTEMI) myocardial infarction (3) Cardiomyopathy ICD Code: I42.9 - Cardiomyopathy, unspecified (4) Elevated troponin ICD Code: R79.89 - Other specified abnormal findings of blood chemistry Status: Acute (5) HLD (hyperlipidemia) ICD Code: E78.5 - Hyperlipidemia, unspecified Status: Acute (6) Diabetes ICD Code: E11.9 - Type 2 diabetes mellitus without complications Assessment and Plan Acute on chronic systolic congestive heart failure. Patient presents with progressive swelling, elevated BNP, chest x-ray does not indicate any edema, CT does show pleural effusion. Repeat BNP today 965. 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 Strict input and output, according to records no significant fluid output or weight loss Poor prognosis secondary to medication noncompliance, severe cardiomyopathy, drug use Elevated troponin, possible non-ST elevated myocardial infarction, amphetamine induced ischemia/spasm Cardiac enzymes remain elevated and plateaued Serial EKGs were reviewed and show right bundle branch block without any changes Continue heparin IV per protocol Continue aspirin, beta scott, ARB, nitroglycerin, Statin Consulted cardiology for further recommendations, appreciate input. Lipid panel unremarkable. Previous cardiac catheterization july 2015 indicating global hypokinesis with ejection fraction 40%. However clean coronary arteries. Diabetes Accu-Cheks with sliding scale insulin. Will start on long-acting insulin. Continue to monitor blood sugar trends. Hemoglobin A1c 11.5 Elevated TSH, rule out hypothyroidism, sick euthyroid Free T3/free T4 normal. Chronic back pain, peripheral neuropathy Continue gabapentin DVT prevention Continue heparin IV Lyndsay Fishman Mar 24, 2017 10:23
[2017-03-24 12:00] VITALS: BP 108/78; PULSE 108; RESP 20; TEMP 96.9; O2SAT 95
[2017-03-24] MEDS ORDERED: LEVOTHYROXINE SODIUM 25 MCG TAB PO SCH (14:00)
[2017-03-24] MEDS ORDERED: INSULIN DETEMIR 100 UNITS/ML VIAL SQ SCH (21:00)
--- NOTE | 2017-04-04 11:24 | PQ ---
Physician Query Response Document PATIENT: TOM ALBARRAN : 1965 ADMIT DATE: 03/21/2017 3:30 PM DISCH DATE: 03/24/2017 3:45 PM RESPONDING PROVIDER #: [email or web address] QUERY TEXT: Clarification of Clinical Diagnostic Findings Please clarify documentation or clinical relevance for the clinical / diagnostic findings or whether those are insignificant or unable to be further specified. PLEASE CLARIFY IF NSTEMI WAS RULED IN, RULED OUT OR MORE APPROPRIATE DIAGNOSIS MADE. Your prompt response is appreciated, please do not hesitate to contact the CDI/Coding Hotline with an y questions, comments and/or concerns you may have at [phone]. [phone]. The patient's Clinical Indicators include: PATIENT ADMITTED WITH CHEST PAIN, ELEVATED TROPONIN, POSSIBLE NSTEMI, CHF EXACERBATION. TROPONIN: 0.80, 0.77, 0.76 EKGs: 03/21 1ST: SINUS TACHYCARDIA INDETERMINATE AXIS RIGHT BUNDLE BRANCH BLOCK ABNORMAL ECG, 2ND: I NDETERMINATE AXIS RIGHT BUNDLE BRANCH BLOCK ABNORMAL PREVIOUS TRACING. 03/22: INDETERMINATE AXIS RIGH T BUNDLE BRANCH BLOCK LEFT POSTERIOR FASCICULAR BLOCK ABNORMAL ECG Since PREVIOUS TRACING, no signifi cant change noted. PROG NOTE 03/23: A/P LISTS #2 NSTEMI, BUT IN NOTES, STATES POSSIBLE NSTEMI, AMPHETAMINE INDUCED ISC HEMIA/SPASM. [place] NOT DOCUMENTED BY CORRECTIONAL SUPERVISOR. Query created by: Marya Lees on 03/30/2017 3:53 PM RESPONSE TEXT: Patient with elevated troponins , cardiomyopathy with severely reduced EF 20% Patient did live AMA Electronically signed by: Deepika Hugo MD 04/04/2017 11:21 AM
--- NOTE | 2017-04-04 11:26 | HHI.DS ---
Discharge Summary Admission Date Mar 21, 2017 at 15:30 Discharge Date: Mar 24, 2017 Admitting Diagnosis CHF; Pleural Effusions; Hyperglycemia (1) Acute on chronic systolic congestive heart failure ICD Code: I50.23 - Acute on chronic systolic (congestive) heart failure Diagnosis: Principal (2) Non-ST elevated myocardial infarction ICD Code: I21.4 - Non-ST elevation (NSTEMI) myocardial infarction Diagnosis: Principal (3) Cardiomyopathy ICD Code: I42.9 - Cardiomyopathy, unspecified Diagnosis: Principal (4) Elevated troponin ICD Code: R79.89 - Other specified abnormal findings of blood chemistry Diagnosis: Principal Status: Acute (5) HLD (hyperlipidemia) ICD Code: E78.5 - Hyperlipidemia, unspecified Diagnosis: Secondary Status: Acute (6) Diabetes ICD Code: E11.9 - Type 2 diabetes mellitus without complications Diagnosis: Secondary Procedures none Brief History - From Admission 51 year-old male with known history of hypertension, hyperlipidemia, cardiomyopathy, chronic systolic congestive heart failure, diabetes, chronic back pain, peripheral neuropathy who presented to hospital as of edema, chest pain, shortness of breath. Patient states that 5 days ago he notices bilateral lower extremities/feet swelling and they've progressively got worse and very painful. Throughout the last 5 days he has had progressive swelling Creeping all way up his body up until its to his neck at this time. States that he is having severe chest pain whenever he took a deep breath. He came to emergency department today because he thought he was having swelling in his neck and he could not breathe and had severe shortness of breath. Patient had workup done emergency department and found to have elevated troponin, elevated BNP. Chest x -ray do not indicate any bony edema or congestive pattern. However CT scan did show pleural effusions. Patient indicates that the pain that experiencing his chest was only whenever he took a deep breath. Denies any radiation to his neck , back, shoulder, arms. Denies any nausea, vomiting, lightheadedness, dizziness. Upon review medical records does appear the patient has been admitted to hospital multiple times for chest discomfort. His last cardiac catheterization documented here was July 2015 in which he had global cardiomyopathy with ejection fraction 40% with clean coronary arteries. Further workup does indicate the patient also was positive for amphetamines. Patient denied any amphetamine use. Does indicate that he smoked marijuana occasionally. However patient could be having myocardial ischemia/spasm from amphetamine use. ER physician recommended patient be admitted the hospital. Imaging Last Impressions Chest X-Ray 03/21/171401 Signed Impressions: Service Date/Time: Tuesday, March 21, 2017 14:39 - CONCLUSION: Moderate enlargement of the cardiac silhouette. Deb Wade MD CT Angiography 03/21/171401 Signed Impressions: Service Date/Time: Tuesday, March 21, 2017 14:25 - CONCLUSION: Bilateral pleural effusions and no definite pulmonary embolus, however somewhat limited exam due to suboptimal bolus opacification of the pulmonary arteries. Deb Wade MD PE at Discharge GENERAL: Well-nourished, well-developed patient in NAD. SKIN: Warm and dry. No rash. HEAD: Normocephalic. Atraumatic. EYES: Pupils equal and round. No scleral icterus. No injection or drainage. ENT: No nasal bleeding or discharge. Mucous membranes pink and moist. NECK: Supple. Trachea midline. CARDIOVASCULAR: Regular rate and rhythm. S1, S2 noted. No murmur appreciated. RESPIRATORY: No accessory muscle use. Clear to auscultation. Breath sounds equal bilaterally. GASTROINTESTINAL: Abdomen soft, non-tender, nondistended. Normoactive bowel sounds x4. MUSCULOSKELETAL: No obvious deformities. Extremities without clubbing, cyanosis , or edema. NEUROLOGICAL: Awake and alert. No obvious cranial nerve deficits. Motor grossly within normal limits. 5/5 muscle strength in bilateral upper and lower extremities. Normal speech. PSYCHIATRIC: Appropriate mood and affect; insight and judgment normal. Hospital Course 51 year-old male with known history of hypertension, hyperlipidemia, cardiomyopathy, chronic systolic congestive heart failure, diabetes, chronic back pain, peripheral neuropathy who presented to hospital as of edema, chest pain, shortness of breath. Patient with Acute on chronic systolic congestive heart failure. Cardiomyopathy with severely reduced EF 20%, Elevated troponin Previous cardiac catheterization july 2015 indicating global hypokinesis with ejection fraction 40%. However clean coronary arteries. Received diuretics, home meds restarted. Not cleared by cardiology for DC NOTE: PATIENT LEFT AMA Pt Condition on Discharge: Stable Discharge Disposition: Discharge Home (left AMA) Discharge Time: <= 30 minutes Deepika Hugo MD Apr 04, 2017 11:26
== END 2017-03-24 15:45 | disposition left against medical advice (07) | DRG 293 ==
LOC: PHED 13:44 → PHEDA 15:30 → PH3B 18:02
PROVIDERS: ADMIT Hospitalist; ATTEND Hospitalist
DX: I11.0 Hypertensive heart disease with heart failure (principal); E11.42 Type 2 diabetes mellitus with diabetic polyneuropathy; I42.8 Other cardiomyopathies; I50.23 Acute on chronic systolic (congestive) heart failure; R74.9 Abnormal serum enzyme level, unspecified; G89.29 Other chronic pain; M54.9 Dorsalgia, unspecified; I45.10 Unspecified right bundle-branch block; K21.9 Gastro-esophageal reflux disease without esophagitis; I25.2 Old myocardial infarction; E78.5 Hyperlipidemia, unspecified; F12.90 Cannabis use, unspecified, uncomplicated; F15.10 Other stimulant abuse, uncomplicated; F32.9 Major depressive disorder, single episode, unspecified; F41.9 Anxiety disorder, unspecified; Z72.0 Tobacco use; Z79.4 Long term (current) use of insulin; Z88.2 Allergy status to sulfonamides; Z91.14 Patient's other noncompliance with medication regimen; Z91.19 Patient's noncompliance with other medical treatment and regimen
CPT/HCPCS: 36600; 71045; 71275; 80048; 80053; 80061; 80307; 82550; 82552; 82805; 82948; 83036; 83735; 83880; 84439; 84443; 84481; 84484; 85025; 85610; 85730; 93005; 93306; 94150; 94618; 94664; 96374; 96375; J1644; J1815; J1940; J2060; J2270; J2405; Q9967

== ENCOUNTER 2017-04-19 18:01 | Emergency (ER) | payer OTHER ==
[~2017-04-19] VITALS: Ht 170.2 cm; Wt 83.0 kg
[~2017-04-19 18:01] MED LIST changes: -CLIN300C5 PO; -HYDR-3533 PO; +LEVEMIR SQ; -PENI500T PO; +PREV15CA20 PO; -ZANT150T2 PO
[2017-04-19 18:05] VITALS: BP 131/97; PULSE 114; RESP 18; TEMP 98.8; O2SAT 97
[2017-04-19] MEDS ORDERED: AMOXICILLIN (TRIHYDRATE) 500 MG CAP PO ONE (19:00)
[2017-04-19] MEDS ORDERED: ACETAMINOPHEN/HYDROcodone 325 MG/5 MG TAB PO ONE (19:00)
[2017-04-19] MEDS ORDERED: AMOX500C PO (19:01)
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
== END 2017-04-19 19:29 | disposition home or self-care (01) ==
LOC: PHEFT 18:01
DX: H66.91 Otitis media, unspecified, right ear (principal); F41.9 Anxiety disorder, unspecified; E78.00 Pure hypercholesterolemia, unspecified; E11.9 Type 2 diabetes mellitus without complications; K21.9 Gastro-esophageal reflux disease without esophagitis; I10 Essential (primary) hypertension; I21.9 Acute myocardial infarction, unspecified; Z87.19 Personal history of other diseases of the digestive system; Z87.442 Personal history of urinary calculi
CPT/HCPCS: 99283

== ENCOUNTER 2017-06-03 20:39 | Emergency (ER) | payer SELFPAY ==
[~2017-06-03] VITALS: Ht 170.2 cm; Wt 92.0 kg
[~2017-06-03 20:39] MED LIST changes: +AMOX500C PO
[2017-06-03 20:42] VITALS: BP 143/76; PULSE 115; RESP 18; TEMP 97.8; O2SAT 98
[2017-06-03] MEDS ORDERED: SODIUM CHLORIDE 0.9% FLUSH 10 ML FLUSH IV FLUSH PRN (21:30)
[2017-06-03] MEDS ORDERED: MORPHINE SULFATE 4 MG/ML INJ IV PUSH ONE (21:30)
[2017-06-03] MEDS ORDERED: METR-1 PO (21:32)
[2017-06-03] MEDS ORDERED: CYCL10TA PO (21:32)
[2017-06-03] MEDS ORDERED: BUSP5TAB PO (21:32)
[2017-06-03] MEDS ORDERED: FURO1TAB62 PO (21:32)
[2017-06-03] MEDS ORDERED: METO25TA3 PO (21:32)
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
[2017-06-03 21:45] LABS: AUTOMATED NEUTROPHIL # 3.9 TH/MM3 (1.8-7.7); BASOPHIL # 0.1 TH/MM3 (0-0.2); BASOPHIL % 1.6 % (0.0-2.0); EOSINOPHIL % 0.8 % (0.0-4.0); HEMATOCRIT 40.9 % (39.0-51.0); HEMOGLOBIN 13.7 GM/DL (13.0-17.0); LYMPH % 23.7 % (9.0-44.0); LYMPHOCYTE # 1.5 TH/MM3 (1.0-4.8); MEAN CELL VOLUME 94.8 FL (80.0-100.0); MEAN CORPUSCULAR HEMOGLOBIN 31.7 PG (27.0-34.0); MEAN CORPUSCULAR HGB CONC 33.5 % (32.0-36.0); MEAN PLATELET VOLUME 8.7 FL (7.0-11.0); MONO % 9.1 % (0.0-8.0); MONOCYTE # 0.6 TH/MM3 (0-0.9); NEUT % 64.8 % (16.0-70.0); PLATELET COUNT 155 TH/MM3 (150-450); RED BLOOD COUNT 4.31 MIL/MM3 (4.50-5.90); RED CELL DISTRIBUTION WIDTH 13.6 % (11.6-17.2); WHITE BLOOD COUNT 6.1 TH/MM3 (4.0-11.0)
[2017-06-03] MEDS ORDERED: SODIUM CHLORID 0.9% 500 ML INJ 500 ML IV ONE (21:45)
[2017-06-03 21:53] LABS: CHLORIDE 102 MEQ/L (98-107); SODIUM (NA) 138 MEQ/L (136-145)
[2017-06-03 21:56] LABS: CALCIUM 8.6 MG/DL (8.5-10.1)
[2017-06-03 21:57] LABS: ALBUMIN 2.9 GM/DL (3.4-5.0); BICARBONATE 29.3 MEQ/L (21.0-32.0); BLOOD UREA NITROGEN 24 MG/DL (7-18); GLUCOSE,RANDOM 218 MG/DL (74-106)
[2017-06-03 21:59] LABS: INTERNATIONAL NORMALIZED RATIO 1.2 RATIO; PROTHROMBIN TIME - PATIENT 11.8 SEC (9.8-11.6)
[2017-06-03 22:00] LABS: ALT (GPT) 72 U/L (12-78); AST (GOT) 44 U/L (15-37); GLOMERULAR FILTRATION RATE 49 ML/MIN (>89)
[2017-06-03 22:01] LABS: TOTAL BILIRUBIN ADULT 0.7 MG/DL (0.2-1.0); TOTAL PROTEIN 6.6 GM/DL (6.4-8.2)
[2017-06-03 22:02] LABS: ALKALINE PHOSPHATASE 160 U/L (45-117)
[2017-06-03 22:12] VITALS: BP 152/85; PULSE 106; RESP 20; O2SAT 94
--- NOTE | 2017-06-03 22:43 | RADRPT ---
EXAM DATE/TIME: 06/03/2017 22:14 [facility] COMPARISON: CT PULMONARY ANGIOGRAM, March 21, 2017, 14:25. INDICATIONS : Middle abdomen swelling and pain. ORAL CONTRAST: No oral contrast ingested. RADIATION DOSE: 22.46 CTDIvol (mGy) MEDICAL HISTORY : Congestive heart failure. Cardiovascular disease Renal calculi.Diverticulitis. Inguinal hernia. Diabe leodan. Pancreatitis. SURGICAL HISTORY : Inguinal hernia repair. ENCOUNTER: Initial ACUITY: 2 days PAIN SCALE: 8/10 LOCATION: middle abdomen TECHNIQUE: Volumetric scanning of the abdomen and pelvis was performed. Using automated exposure control and ad justment of the mA and/or kV according to patient size, radiation dose was kept as low as reasonably achievable to obtain optimal diagnostic quality images. DICOM format image data is available electro nically for review and comparison. FINDINGS: Trace effusions are evident mild cardiomegaly. There is moderate ascites. As the focal 3.6 cm mass in the right lobe of the liver. This isn't well evaluated on today's exam is without contrast.. The spleen and pancreas are unremarkable The adrenals and kidneys appear normal Moderate stool is seen throughout the colon There is no adenopathy. Scattered diverticula are seen in the sigmoid colon. Prostate is prominent. Bladder is unremarkable . Degenerative changes are present in the lumbar spine. CONCLUSION: Trace ascites with mass right lobe of the liver incompletely evaluated on today's exam noncontrast Trace pleural effusions without cardiomegaly. Rodríguez Nicholson MD FACR on June 03, 2017 at 22:38 Board Certified Radiologist. This report was verified electronically.
[2017-06-03 22:51] VITALS: BP 134/84; PULSE 104; RESP 20; O2SAT 94
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
[2017-06-03 23:09] LABS: BILIRUBIN, URINE NEG (NEG); BLOOD, URINE NEG (NEG); GLUCOSE,URINE 250 mg/dL (NEG); KETONE, URINE TRACE mg/dL (NEG); NITRITE,URINE NEG (NEG); PH, URINE 5.5 (5.0-8.5); URINE LEUKOCYTE ESTERASE TRACE (NEG)
[2017-06-03 23:15] LABS: RBC, URINE 0-2 /hpf (0-3); SQUAMOUS EPITHELIAL CELL URINE 0-5 /hpf (0-5); URINE COLOR AMBER (YELLW/STRAW); WBC, URINE 0-2 /hpf (0-5)
[2017-06-03] MEDS ORDERED: FUROSEMIDE 40 MG/4 ML VIAL IV PUSH ONE (23:30)
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
[2017-06-03] MEDS ORDERED: AZIT500T2 PO (23:51)
[2017-06-04] MEDS ORDERED: AZITHROMYCIN 250 MG TAB PO ONE
[2017-06-04 00:44] VITALS: BP 125/85
== END 2017-06-04 00:46 | disposition home or self-care (01) ==
LOC: PHED 20:39 → PHEFT 06-04 00:46
DX: R16.0 Hepatomegaly, not elsewhere classified (principal); R18.8 Other ascites; R60.9 Edema, unspecified; I11.0 Hypertensive heart disease with heart failure; I50.9 Heart failure, unspecified; N28.9 Disorder of kidney and ureter, unspecified; E11.9 Type 2 diabetes mellitus without complications; F17.290 Nicotine dependence, other tobacco product, uncomplicated; F12.90 Cannabis use, unspecified, uncomplicated
CPT/HCPCS: 71045; 74176; 80053; 81001; 83690; 83880; 85025; 85610; 85730; 93970; 96361; 96374; 96375; 99285; J1940; J2270; J7040

== ENCOUNTER 2018-02-10 03:19 | Inpatient (IN) ==
--- NOTE | 2018-02-10 03:42 | ED ---
HPI General Chief complaint: Shortness of Breath/Dyspnea Stated complaint: sob Time Seen by Provider: 02/10/18 03:29 Source: patient Mode of arrival: ambulatory Limitations: no limitations History of Present Illness HPI narrative: 52yo M with PMH of CHF Echo 03/2017 EF 20-25% with global LV dysfunction, CAD, HTN, mass in right lobe of liver here with c/o sob that is worst today. Admits to not taking his water pills today. Also complains of pain everywhere including chest pain, chronic abdominal pain. Chronic nausea and vomiting. Said his legs are more swollen. Said he had sweat and chills but no documented fever. Related Data Home Medications Medication Instructions Recorded Confirmed cyclobenzaprine 10 mg PO TID PRN 01/08/18 02/10/18 furosemide 40 mg PO BID 01/08/18 02/10/18 gabapentin 600 mg PO BID 01/08/18 02/10/18 meclizine 25 mg PO DAILY PRN 01/08/18 02/10/18 omeprazole magnesium [Prilosec OTC] 20 mg PO DAILY 01/08/18 02/10/18 Previous Rx's Medication Instructions Recorded bumetanide 2 mg PO DAILY #30 tab 01/08/18 ondansetron [Zofran ODT] 4 mg PO Q6-8H PRN #20 tab 01/08/18 potassium chloride 10 meq PO DAILY #30 cap 01/08/18 Allergies Allergy/AdvReac Type Severity Reaction Status Date / Time lisinopril Allergy Severe Swelling Verified 01/08/18 09:38 Sulfa (Sulfonamide Allergy Severe Anaphylaxis Verified 01/08/18 09:38 Antibiotics) Review of Systems ROS: all other systems reviewed are negative [facility] Social History Social History Substance History: No History of Abuse Smoking Status: Former smoker How Often Do You Have a Drink Containing Alcohol: Never Recent Travel in [facility] within the Last 8 Weeks: No Recent Out of Country Travel within the Last 8 Weeks: No Immunization History Tetanus Immunization: <5 Years Exam Narrative Exam Narrative: GENERAL: 52yo M in moderate distress. SKIN: Focused skin assessment warm/dry. HEAD: Atraumatic. Normocephalic. EYES: Pupils equal and round. No scleral icterus. No injection or drainage. ENT: No nasal bleeding or discharge. Mucous membranes pink and moist. NECK: Trachea midline. + JVD. CARDIOVASCULAR: Regular rate and rhythm. No murmur appreciated. RESPIRATORY: +accessory muscle use. Decreased breath sounds bilateral lower lungs. No wheezing. GASTROINTESTINAL: Abdomen softly distended. Not tender to palpation. MUSCULOSKELETAL: No obvious deformities. No clubbing. No cyanosis. +Marked bilateral lower extremity edema. NEUROLOGICAL: Awake and alert. No obvious cranial nerve deficits. Motor grossly within normal limits. Normal speech. PSYCHIATRIC: Appropriate mood and affect; insight and judgment normal. Course Initial Documented Vital Signs Temperature 97.6 F 02/10/18 03:29 Pulse Rate 116 H 02/10/18 03:29 Respiratory Rate 22 02/10/18 03:29 Blood Pressure 131/87 02/10/18 03:29 Pulse Oximetry 92 L 02/10/18 03:29 Last Documented Vital Signs Temperature 98 F 02/11/18 04:00 Pulse Rate 86 02/11/18 06:00 Respiratory Rate 20 02/11/18 04:00 Blood Pressure 117/57 L 02/11/18 04:00 Pulse Oximetry 97 02/11/18 04:00 Critical Care Time Critical Care Time: Yes Total Critical Care Time: 40 Attestation: Aggregate critical care time was 40 minutes. Time to perform other separately billable procedures was not included in the critical care time. My time did not include minutes spent treating any other patients simultaneously or on activities that did not directly contribute to the patient's treatment. The services I provided to this patient were to treat and/or prevent clinically significant deterioration that could result in: cardiovascular collapse or . I provided critical care services requiring my management, as noted below: Chart data review, documentation time, medication orders and management, vital sign assessments/reviewing monitor data, ordering and reviewing lab tests, ordering and interpreting/reviewing x-rays and diagnostic studies, care of the patient and discussion of the patient with the admitting physicians. Medical Decision Making MDM Narrative Medical decision making narrative: 52yo M with CHF EF 20-25% here with worsening sob tonight. He does not seem to be compliant with his medications. Said his legs are more swollen. Pt is tachypneic and tachycardic and said he had chills so sepsis work up initiated. His fingers were cold initially and we could not get a good waveform so ABG obtained. Labs reviewed, no leukocytosis. H/H normal. Bilirubin elevated, could be from dehydration as liver enzymes are not really changed. Pt also placed on 2L NC and feels better. CXR showed new bilateral lower lung zone pulmonary opacity likely mild pulmonary edema. Pt given lasix 60mg IV. BNP is elevated at 2817. Troponin is elevated at 1.03. Pt has very atypical chest pain for a month that is across his chest and worst with coughing. [place] that his elevated troponin is more likely secondary to his CHF exacerbation rather than an NSTEMI. He had elevated troponin in 2017 as well. Had normal coronary artery during cardiac cath in 07/[address] Yoon. Pt does not have a documentation manager he follows with. Since he does have an elevated troponin, will transfer to [facility] and trend it. If it does go up significantly, then more likely related to coronary artery occlusion. Pt also seemed very anxious and hyperventilating so 1mg of ativan given. He does feel better after. Discussed with Dr. Isaac and accepted to his service. Medical Screen Exam Complete: Yes Emergency Medical Condition: Yes Differential Diagnosis Differential Diagnosis: CHF exacerbation vs. fluid overload vs. pneumonia vs. anxiety vs. ACS Lab Data Result diagrams: 02/10/18 03:30 02/10/18 03:30 Lab Results 02/10/18 02/10/18 02/10/18 Range/Units 03:30 03:30 03:30 CBC w Diff Auto diff final WBC 7.6 (4.0-11.0) th/mm3 RBC 4.66 (4.50-5.90) mil/mm3 Hgb 14.2 (13.0-17.0) gm/dL Hct 43.4 (39.0-51.0) % MCV 93.3 (80.0-100.0) fL MCH 30.4 (27.0-34.0) pg MCHC 32.6 (32.0-36.0) % RDW 14.6 (11.6-17.2) % Plt Count 189 (150-450) th/mm3 MPV 8.4 (7.0-11.0) fL Neut % (Auto) 67.3 (16.0-70.0) % Lymph % (Auto) 20.1 (9.0-44.0) % Branch % (Auto) 10.6 H (0.0-8.0) % Eos % (Auto) 0.8 (0.0-4.0) % Baso % (Auto) 1.2 (0.0-2.0) % Neut # (Auto) 5.1 (1.8-7.7) th/mm3 Lymph # (Auto) 1.5 (1.0-4.8) th/mm3 Branch # (Auto) 0.8 (0.0-0.9) th/mm3 Eos # (Auto) 0.1 (0.0-0.4) th/mm3 Baso # (Auto) 0.1 (0.0-0.2) th/mm3 WBC Differential . Differential Comment . PT 12.5 H (9.8-11.6) sec INR 1.2 Ratio APTT 29.0 (23.4-31.7) sec Puncture Site Patient Temperature O2 Saturation (90-100) % ABG pH (7.380-7.420) ABG pCO2 (38-42) mmHg ABG pO2 (61-120) mmHg ABG HCO3 (22-26) mmol/L ABG O2 Content (12.0-20.0) Vol % ABG Base Excess (-2-2) mmol/L ABG Methemoglobin (0-2) % Radu Test Hemoglobin (12.0-16.0) G/DL Carboxyhemoglobin (0-4) % O2 Delivery Device Inspired O2 % Critical Value Sodium 135 L (136-145) meq/L Potassium 4.1 (3.5-5.1) meq/L Chloride 100 (98-107) meq/L Carbon Dioxide 27.2 (21.0-32.0) meq/L Anion Gap 8 (5-15) meq/L BUN 14 (7-18) mg/dL Creatinine 1.10 (0.60-1.30) mg/dL Estimated GFR 70 L (>89) mL/min POC Glucose (68-110) mg/dl Random Glucose 182 H (74-106) mg/dL Lactic Acid (0.4-2.0) mmol/L Calcium 8.2 L (8.5-10.1) mg/dL Magnesium 1.9 (1.5-2.5) mg/dL Total Bilirubin 2.4 H (0.2-1.0) mg/dL AST 42 H (15-37) U/L ALT 24 (12-78) U/L Alkaline Phosphatase 246 H (45-117) U/L Troponin I 1.03 H* (0.02-0.05) ng/mL B-Natriuretic Peptide (0-100) pg/mL Total Protein 7.2 (6.4-8.2) g/dL Albumin 2.8 L (3.4-5.0) g/dL Urine Opiates Screen (Neg) Ur Barbiturates Screen (Neg) Ur Amphetamines Screen (Neg) U Benzodiazepines Scrn (Neg) Urine Cocaine Screen (Neg) U Cannabinoids Screen (Neg) 02/10/18 02/10/18 02/10/18 Range/Units 03:30 03:30 03:32 CBC w Diff WBC (4.0-11.0) th/mm3 RBC (4.50-5.90) mil/mm3 Hgb (13.0-17.0) gm/dL Hct (39.0-51.0) % MCV (80.0-100.0) fL MCH (27.0-34.0) pg MCHC (32.0-36.0) % RDW (11.6-17.2) % Plt Count (150-450) th/mm3 MPV (7.0-11.0) fL Neut % (Auto) (16.0-70.0) % Lymph % (Auto) (9.0-44.0) % Branch % (Auto) (0.0-8.0) % Eos % (Auto) (0.0-4.0) % Baso % (Auto) (0.0-2.0) % Neut # (Auto) (1.8-7.7) th/mm3 Lymph # (Auto) (1.0-4.8) th/mm3 Branch # (Auto) (0.0-0.9) th/mm3 Eos # (Auto) (0.0-0.4) th/mm3 Baso # (Auto) (0.0-0.2) th/mm3 WBC Differential Differential Comment PT (9.8-11.6) sec INR Ratio APTT (23.4-31.7) sec Puncture Site Patient Temperature O2 Saturation (90-100) % ABG pH (7.380-7.420) ABG pCO2 (38-42) mmHg ABG pO2 (61-120) mmHg ABG HCO3 (22-26) mmol/L ABG O2 Content (12.0-20.0) Vol % ABG Base Excess (-2-2) mmol/L ABG Methemoglobin (0-2) % Radu Test Hemoglobin (12.0-16.0) G/DL Carboxyhemoglobin (0-4) % O2 Delivery Device Inspired O2 % Critical Value Sodium (136-145) meq/L Potassium (3.5-5.1) meq/L Chloride (98-107) meq/L Carbon Dioxide (21.0-32.0) meq/L Anion Gap (5-15) meq/L BUN (7-18) mg/dL Creatinine (0.60-1.30) mg/dL Estimated GFR (>89) mL/min POC Glucose 159 H (68-110) mg/dl Random Glucose (74-106) mg/dL Lactic Acid 2.0 (0.4-2.0) mmol/L Calcium (8.5-10.1) mg/dL Magnesium (1.5-2.5) mg/dL Total Bilirubin (0.2-1.0) mg/dL AST (15-37) U/L ALT (12-78) U/L Alkaline Phosphatase (45-117) U/L Troponin I (0.02-0.05) ng/mL B-Natriuretic Peptide 2817 H (0-100) pg/mL Total Protein (6.4-8.2) g/dL Albumin (3.4-5.0) g/dL Urine Opiates Screen (Neg) Ur Barbiturates Screen (Neg) Ur Amphetamines Screen (Neg) U Benzodiazepines Scrn (Neg) Urine Cocaine Screen (Neg) U Cannabinoids Screen (Neg) 02/10/18 02/10/18 02/10/18 Range/Units 03:48 06:33 08:38 CBC w Diff WBC (4.0-11.0) th/mm3 RBC (4.50-5.90) mil/mm3 Hgb (13.0-17.0) gm/dL Hct (39.0-51.0) % MCV (80.0-100.0) fL MCH (27.0-34.0) pg MCHC (32.0-36.0) % RDW (11.6-17.2) % Plt Count (150-450) th/mm3 MPV (7.0-11.0) fL Neut % (Auto) (16.0-70.0) % Lymph % (Auto) (9.0-44.0) % Branch % (Auto) (0.0-8.0) % Eos % (Auto) (0.0-4.0) % Baso % (Auto) (0.0-2.0) % Neut # (Auto) (1.8-7.7) th/mm3 Lymph # (Auto) (1.0-4.8) th/mm3 Branch # (Auto) (0.0-0.9) th/mm3 Eos # (Auto) (0.0-0.4) th/mm3 Baso # (Auto) (0.0-0.2) th/mm3 WBC Differential Differential Comment PT (9.8-11.6) sec INR Ratio APTT (23.4-31.7) sec Puncture Site Right radial Patient Temperature 98.6 O2 Saturation 96 (90-100) % ABG pH 7.46 H (7.380-7.420) ABG pCO2 33 L (38-42) mmHg ABG pO2 90 (61-120) mmHg ABG HCO3 23 (22-26) mmol/L ABG O2 Content 18.4 (12.0-20.0) Vol % ABG Base Excess -0.1 (-2-2) mmol/L ABG Methemoglobin 1.0 (0-2) % Radu Test Present Hemoglobin 13.6 (12.0-16.0) G/DL Carboxyhemoglobin 1.6 (0-4) % O2 Delivery Device Room air Inspired O2 21 % Critical Value No Sodium (136-145) meq/L Potassium (3.5-5.1) meq/L Chloride (98-107) meq/L Carbon Dioxide (21.0-32.0) meq/L Anion Gap (5-15) meq/L BUN (7-18) mg/dL Creatinine (0.60-1.30) mg/dL Estimated GFR (>89) mL/min POC Glucose 121 H (68-110) mg/dl Random Glucose (74-106) mg/dL Lactic Acid (0.4-2.0) mmol/L Calcium (8.5-10.1) mg/dL Magnesium (1.5-2.5) mg/dL Total Bilirubin (0.2-1.0) mg/dL AST (15-37) U/L ALT (12-78) U/L Alkaline Phosphatase (45-117) U/L Troponin I 1.00 H* (0.02-0.05) ng/mL B-Natriuretic Peptide (0-100) pg/mL Total Protein (6.4-8.2) g/dL Albumin (3.4-5.0) g/dL Urine Opiates Screen (Neg) Ur Barbiturates Screen (Neg) Ur Amphetamines Screen (Neg) U Benzodiazepines Scrn (Neg) Urine Cocaine Screen (Neg) U Cannabinoids Screen (Neg) 02/10/18 02/10/18 02/10/18 Range/Units 12:06 12:12 12:46 CBC w Diff WBC (4.0-11.0) th/mm3 RBC (4.50-5.90) mil/mm3 Hgb (13.0-17.0) gm/dL Hct (39.0-51.0) % MCV (80.0-100.0) fL MCH (27.0-34.0) pg MCHC (32.0-36.0) % RDW (11.6-17.2) % Plt Count (150-450) th/mm3 MPV (7.0-11.0) fL Neut % (Auto) (16.0-70.0) % Lymph % (Auto) (9.0-44.0) % Branch % (Auto) (0.0-8.0) % Eos % (Auto) (0.0-4.0) % Baso % (Auto) (0.0-2.0) % Neut # (Auto) (1.8-7.7) th/mm3 Lymph # (Auto) (1.0-4.8) th/mm3 Branch # (Auto) (0.0-0.9) th/mm3 Eos # (Auto) (0.0-0.4) th/mm3 Baso # (Auto) (0.0-0.2) th/mm3 WBC Differential Differential Comment PT (9.8-11.6) sec INR Ratio APTT (23.4-31.7) sec Puncture Site Patient Temperature O2 Saturation (90-100) % ABG pH (7.380-7.420) ABG pCO2 (38-42) mmHg ABG pO2 (61-120) mmHg ABG HCO3 (22-26) mmol/L ABG O2 Content (12.0-20.0) Vol % ABG Base Excess (-2-2) mmol/L ABG Methemoglobin (0-2) % Radu Test Hemoglobin (12.0-16.0) G/DL Carboxyhemoglobin (0-4) % O2 Delivery Device Inspired O2 % Critical Value Sodium (136-145) meq/L Potassium (3.5-5.1) meq/L Chloride (98-107) meq/L Carbon Dioxide (21.0-32.0) meq/L Anion Gap (5-15) meq/L BUN (7-18) mg/dL Creatinine (0.60-1.30) mg/dL Estimated GFR (>89) mL/min POC Glucose 139 H (68-110) mg/dl Random Glucose (74-106) mg/dL Lactic Acid (0.4-2.0) mmol/L Calcium (8.5-10.1) mg/dL Magnesium (1.5-2.5) mg/dL Total Bilirubin (0.2-1.0) mg/dL AST (15-37) U/L ALT (12-78) U/L Alkaline Phosphatase (45-117) U/L Troponin I 1.07 H* (0.02-0.05) ng/mL B-Natriuretic Peptide (0-100) pg/mL Total Protein (6.4-8.2) g/dL Albumin (3.4-5.0) g/dL Urine Opiates Screen Neg (Neg) Ur Barbiturates Screen Neg (Neg) Ur Amphetamines Screen Neg (Neg) U Benzodiazepines Scrn Neg (Neg) Urine Cocaine Screen Neg (Neg) U Cannabinoids Screen Neg (Neg) 02/10/18 02/10/18 Range/Units 16:27 19:45 CBC w Diff WBC (4.0-11.0) th/mm3 RBC (4.50-5.90) mil/mm3 Hgb (13.0-17.0) gm/dL Hct (39.0-51.0) % MCV (80.0-100.0) fL MCH (27.0-34.0) pg MCHC (32.0-36.0) % RDW (11.6-17.2) % Plt Count (150-450) th/mm3 MPV (7.0-11.0) fL Neut % (Auto) (16.0-70.0) % Lymph % (Auto) (9.0-44.0) % Branch % (Auto) (0.0-8.0) % Eos % (Auto) (0.0-4.0) % Baso % (Auto) (0.0-2.0) % Neut # (Auto) (1.8-7.7) th/mm3 Lymph # (Auto) (1.0-4.8) th/mm3 Branch # (Auto) (0.0-0.9) th/mm3 Eos # (Auto) (0.0-0.4) th/mm3 Baso # (Auto) (0.0-0.2) th/mm3 WBC Differential Differential Comment PT (9.8-11.6) sec INR Ratio APTT (23.4-31.7) sec Puncture Site Patient Temperature O2 Saturation (90-100) % ABG pH (7.380-7.420) ABG pCO2 (38-42) mmHg ABG pO2 (61-120) mmHg ABG HCO3 (22-26) mmol/L ABG O2 Content (12.0-20.0) Vol % ABG Base Excess (-2-2) mmol/L ABG Methemoglobin (0-2) % Radu Test Hemoglobin (12.0-16.0) G/DL Carboxyhemoglobin (0-4) % O2 Delivery Device Inspired O2 % Critical Value Sodium (136-145) meq/L Potassium (3.5-5.1) meq/L Chloride (98-107) meq/L Carbon Dioxide (21.0-32.0) meq/L Anion Gap (5-15) meq/L BUN (7-18) mg/dL Creatinine (0.60-1.30) mg/dL Estimated GFR (>89) mL/min POC Glucose 169 H 235 H (68-110) mg/dl Random Glucose (74-106) mg/dL Lactic Acid (0.4-2.0) mmol/L Calcium (8.5-10.1) mg/dL Magnesium (1.5-2.5) mg/dL Total Bilirubin (0.2-1.0) mg/dL AST (15-37) U/L ALT (12-78) U/L Alkaline Phosphatase (45-117) U/L Troponin I (0.02-0.05) ng/mL B-Natriuretic Peptide (0-100) pg/mL Total Protein (6.4-8.2) g/dL Albumin (3.4-5.0) g/dL Urine Opiates Screen (Neg) Ur Barbiturates Screen (Neg) Ur Amphetamines Screen (Neg) U Benzodiazepines Scrn (Neg) Urine Cocaine Screen (Neg) U Cannabinoids Screen (Neg) Imaging Data Radiologist's impression: Chest X-Ray 02/10/18 03:29 CONCLUSION: 1. Persistent cardiac silhouette enlargement. 2. New bilateral lower lung zone pulmonary opacity likely representing mild pulmonary edema. ECG Data EKG Prior to Arrival: No Interpretation: Sinus tachycardia at 114bpm. RBBB. NE interval 136ms. Mild ST depression diffusely similar to previous. Discharge Plan Discharge Disposition Patient Disposition: ED Admit(ED Internal Use Only) Discharge Order Discharge Orders: ED Use Only Admit Order (Routine); Ordered 02/10/18 Ordered By: Francia Contreras Discharge Details Diagnosis: Pulmonary edema, Elevated troponin Physicians Team ED Provider: Francia Contreras Primary Care Provider: Primary Care Pamela,Meredith Attending Provider: Gera Harry Other Providers: Riki Sigala Status ED Status: Left Department Discharge Information Discharge Date/Time: 02/10/18 07:51
[2018-02-10 03:45] LABS: Baso # (Auto) 0.1 th/mm3 (0.0-0.2); Baso % (Auto) 1.2 % (0.0-2.0); Eos # (Auto) 0.1 th/mm3 (0.0-0.4); Eos % (Auto) 0.8 % (0.0-4.0); Hematocrit 43.4 % (39.0-51.0); Hemoglobin 14.2 gm/dL (13.0-17.0); Lymph # (Auto) 1.5 th/mm3 (1.0-4.8); Lymph % (Auto) 20.1 % (9.0-44.0); Mean Corpuscular HGB Conc 32.6 % (32.0-36.0); Mean Corpuscular Hemoglobin 30.4 pg (27.0-34.0); Mean Corpuscular Volume 93.3 fL (80.0-100.0); Mean Platelet Volume 8.4 fL (7.0-11.0); Mono # (Auto) 0.8 th/mm3 (0.0-0.9); Mono % (Auto) 10.6 % (0.0-8.0); Neut # (Auto) 5.1 th/mm3 (1.8-7.7); Neut % (Auto) 67.3 % (16.0-70.0); Platelet Count 189 th/mm3 (150-450); Red Blood Count 4.66 mil/mm3 (4.50-5.90); Red Cell Distribution Width 14.6 % (11.6-17.2); White Blood Count 7.6 th/mm3 (4.0-11.0)
[2018-02-10 03:55] LABS: Chloride 100 meq/L (98-107); Potassium 4.1 meq/L (3.5-5.1); Sodium 135 meq/L (136-145)
--- NOTE | 2018-02-10 03:55 | XR ---
EXAM DATE: 02/10/2018 3:49 AM EST AGE/SEX: 52 years / Male INDICATIONS: Short of breath. CLINICAL DATA: This is the patient's initial encounter. Patient reports that signs and symptoms have been present for 1 day and indicates a pain score of 0/10. MEDICAL/SURGICAL HISTORY: . Congestive heart failure. Hypercholesterolemia. Myocardial infarcti on. HTN. GERD. Diverticulitis. Pancreatitis. Renal calculi. Diabetes. . Right inguinal hernia repai r. COMPARISON: [facility], CHEST 1V SINGLE AP, 01/08/2018. . FINDINGS: Single AP view the chest. Moderate cardiac silhouette enlargement unchanged. New bilateral lower lung zone pulmonary opacity and central pulmonary vasculature prominence. Trace right pleural effusion. N o evidence of pneumothorax. CONCLUSION: 1. Persistent cardiac silhouette enlargement. 2. New bilateral lower lung zone pulmonary opacity likely representing mild pulmonary edema. Electronically signed by: Ant Nazario MD 02/10/2018 3:53 AM EST
[2018-02-10 03:58] LABS: Calcium 8.2 mg/dL (8.5-10.1)
[2018-02-10 03:59] LABS: Albumin 2.8 g/dL (3.4-5.0); Anion Gap 8 meq/L (5-15); Blood Urea Nitrogen 14 mg/dL (7-18); Carbon Dioxide 27.2 meq/L (21.0-32.0); Glucose,Random 182 mg/dL (74-106); Magnesium 1.9 mg/dL (1.5-2.5)
[2018-02-10 04:01] LABS: INR 1.2 Ratio; Prothrombin Time 12.5 sec (9.8-11.6)
[2018-02-10 04:02] LABS: ABG Base Excess -0.1 mmol/L (-2-2); ABG PCO2 33 mmHg (38-42); ABG PO2 90 mmHg (61-120)
[2018-02-10 04:02] LABS: Alanine Aminotransferase 24 U/L (12-78); Aspartate Aminotransferase 42 U/L (15-37); Glomerular Filtration Rate 70 mL/min (>89)
[2018-02-10 04:04] LABS: Total Protein 7.2 g/dL (6.4-8.2)
[2018-02-10 04:05] LABS: Alkaline Phosphatase 246 U/L (45-117)
[2018-02-10 04:31] LABS: Troponin I 1.03 ng/mL (0.02-0.05)
[2018-02-10] MEDS ORDERED: Bisacodyl 10 MG Supp RECTAL PRN (05:55)
[2018-02-10] MEDS ORDERED: Acetaminophen 325 MG Tablet PO PRN (05:55)
[2018-02-10] MEDS: Potassium Chloride 10 MEQ ER Capsule PO SCH (08:42)
[2018-02-10] MEDS: Pantoprazole Sodium 20 MG DR Tablet PO SCH (08:42)
[2018-02-10] MEDS: Gabapentin 300 MG Capsule PO SCH ×2 (08:42→20:01)
--- NOTE | 2018-02-10 09:05 | P.CONCA ---
History of Present Illness Primary Care Provider: No Primary Care Physician History of Present Illness: 52-year-old male with chronic systolic CHF. EF 20-25% by echocardiogram in March of this year. Normal coronary arteries by [facility] 2016. The patient has not been following with any doctors. He reports the only thing he has been taking for his heart is Bumex 1 a day, unsure of the dose. He reports over the past few days has been having worsening shortness of breath, leg swelling, orthopnea. He feels like over the past few days he is gained 20 pounds. Chest x-ray on admission showed mild pulmonary edema. BNP 2800, previously 700 in May. Troponin 1.0 x 2. LFTs elevated with possible hepatic congestion. Review of Systems All other systems reviewed negative except as stated in HPI [facility] - History History Provided By: Patient - Medical History Medical History: Medical History (Last Reviewed 02/10/18 @ 08:11 by Sandi Swartz) CHF (congestive heart failure) Chronic back pain Diabetes - Surgical History Surgical History: Surgical History (Last Reviewed 02/10/18 @ 08:11 by Sandi Swartz) H/O hernia repair - Tobacco History Tobacco Use In Past 30 Days: No Smoking Status: Former smoker - Alcohol History How Often Do You Have a Drink Containing Alcohol: Never - Substance Use History Substance History: No History of Abuse - Travel History Recent Travel in the [place] Within the Last 8 Weeks: No Recent Travel Out of the Country Within the Last 8 Weeks: No - Immunization History Tetanus Immunization: <5 Years Medications and Allergies Active Medications: Active Medications Acetaminophen (Tylenol) 650 mg PO Q4H PRN PRN Reason: Temp > 100.4 Al Hydroxide/Mg Hydroxide (Milk Of Magnesia Liq) 30 ml PO Q12H PRN PRN Reason: Mild Constipation Bisacodyl (Dulcolax Supp) 10 mg RECTAL DAILY PRN PRN Reason: SEVERE CONSITIPATION Bumetanide (Bumex Inj) 1 mg IV.PUSH BID@0900,1800 [facility] Carvedilol (Coreg) 6.25 mg PO BID [facility] Gabapentin (Neurontin) 600 mg PO BID [facility] Last Admin: 02/10/18 08:42 Dose: 600 mg Lactulose (Lactulose Liq) 30 ml PO DAILY PRN PRN Reason: SEVERE CONSITIPATION Losartan Potassium (Cozaar) 25 mg PO DAILY [facility] Ondansetron HCl (Zofran Inj) 4 mg IV.PUSH Q6H PRN PRN Reason: NAUSEA OR VOMITING Last Admin: 02/10/18 08:42 Dose: 4 mg Pantoprazole Sodium (Protonix) 20 mg PO DAILY [facility] Last Admin: 02/10/18 08:42 Dose: 20 mg Potassium Chloride (Kcl) 10 meq PO DAILY [facility] Last Admin: 02/10/18 08:42 Dose: 10 meq Sennosides (Senokot) 17.2 mg PO Q12H PRN PRN Reason: Moderate Constipation Sodium Chloride (Ns Flush) 2 ml IV.FLUSH BID [facility] Last Admin: 02/10/18 08:42 Dose: 2 ml Sodium Chloride (Ns Flush) 2 ml IV.FLUSH PRN PRN PRN Reason: FLUSH AFTER USING IV ACCESS Allergies Allergy/AdvReac Type Severity Reaction Status Date / Time lisinopril Allergy Severe Swelling Verified 01/08/18 09:38 Sulfa (Sulfonamide Allergy Severe Anaphylaxis Verified 01/08/18 09:38 Antibiotics) Home Medications Medication Instructions Recorded Confirmed Type cyclobenzaprine 10 mg PO TID PRN 01/08/18 02/10/18 History furosemide 40 mg PO BID 01/08/18 02/10/18 History gabapentin 600 mg PO BID 01/08/18 02/10/18 History meclizine 25 mg PO DAILY PRN 01/08/18 02/10/18 History omeprazole magnesium [Prilosec OTC] 20 mg PO DAILY 01/08/18 02/10/18 History Exam Vital signs: Vital Signs 02/10/18 03:29 02/10/18 03:35 02/10/18 04:28 Temperature 97.6 F Pulse Rate 116 H 116 H 112 H Respiratory Rate 22 22 Blood Pressure 131/87 133/80 Pulse Oximetry 92 L 93 L 95 02/10/18 06:40 Temperature Pulse Rate 108 H Respiratory Rate 20 Blood Pressure 145/94 H Pulse Oximetry 98 Intake & Output 02/09/18 02/10/18 02/10/18 18:59 06:59 18:59 Output Total 1999 Balance -1999 Weight 200 lb Output: Urine 1999 Other: # Voids 5 Narrative: GENERAL: Well-developed well-nourished. Appears uncomfortable and dyspneic sitting up in bed. NECK: No carotid bruits. No JVD. CARDIOVASCULAR: Regular rate and rhythm. No murmur appreciated. RESPIRATORY: Diminished breath sounds in the bases. MUSCULOSKELETAL: No clubbing or cyanosis. Chronic venous stasis skin changes with 1+ pitting edema. NEUROLOGICAL: Awake and alert. Normal speech. Results 02/10/18 03:30 02/10/18 03:30 Cardiac Enzymes 02/10/18 02/10/18 02/10/18 Range/Units 03:30 03:30 06:33 AST 42 H (15-37) U/L Troponin I 1.03 H* 1.00 H* (0.02-0.05) ng/mL B-Natriuretic Peptide 2817 H (0-100) pg/mL Coagulation 02/10/18 02/10/18 Range/Units 03:30 03:30 PT 12.5 H (9.8-11.6) sec APTT 29.0 (23.4-31.7) sec B-Natriuretic Peptide 2817 H (0-100) pg/mL CBC 02/10/18 Range/Units 03:30 WBC 7.6 (4.0-11.0) th/mm3 RBC 4.66 (4.50-5.90) mil/mm3 Hgb 14.2 (13.0-17.0) gm/dL Hct 43.4 (39.0-51.0) % Plt Count 189 (150-450) th/mm3 Neut # (Auto) 5.1 (1.8-7.7) th/mm3 Lymph # (Auto) 1.5 (1.0-4.8) th/mm3 [place] # (Auto) 0.8 (0.0-0.9) th/mm3 Eos # (Auto) 0.1 (0.0-0.4) th/mm3 Baso # (Auto) 0.1 (0.0-0.2) th/mm3 Comprehensive Metabolic Panel 02/10/18 Range/Units 03:30 Sodium 135 L (136-145) meq/L Potassium 4.1 (3.5-5.1) meq/L Chloride 100 (98-107) meq/L Carbon Dioxide 27.2 (21.0-32.0) meq/L BUN 14 (7-18) mg/dL Creatinine 1.10 (0.60-1.30) mg/dL Calcium 8.2 L (8.5-10.1) mg/dL AST 42 H (15-37) U/L ALT 24 (12-78) U/L Alkaline Phosphatase 246 H (45-117) U/L Total Protein 7.2 (6.4-8.2) g/dL Albumin 2.8 L (3.4-5.0) g/dL Intake and Output 02/09/18 02/10/18 02/10/18 22:59 06:59 14:59 Output Total 1999 Balance -1999 Output: Urine 1999 Other: # Voids 5 Weight 200 lb - Imaging and Cardiology Imaging: Impressions Chest X-Ray 02/10/18 03:29 CONCLUSION: 1. Persistent cardiac silhouette enlargement. 2. New bilateral lower lung zone pulmonary opacity likely representing mild pulmonary edema. Assessment and Plan - Plan 52-year-old male with chronic systolic CHF who presented for CHF exacerbation. CHF exacerbation: Clinically hypervolemic. Start Bumex 1 mg IV twice daily. Closely follow I's and O's, electrolytes, and renal function. Cardiomyopathy: Resume carvedilol 6.25 mg twice daily and losartan 25 mg daily with lisinopril allergy. Strongly encourage importance of follow-up and medication compliance. Discussed Condition With: Patient, Dr. Yoon
[2018-02-10] MEDS ORDERED: Dextrose 50% in Water 50 ML Vial IV.PUSH PRN (10:29)
--- NOTE | 2018-02-10 11:00 | P.HP ---
History of Present Illness Service: [facility] hospitalist service Primary Care Physician: No Primary Care Physician Chief Complaint: Shortness of breath leg swelling History of Present Illness: Patient is a 52-year-old male with history of cardiomyopathy ejection fraction of 20-25%, history of CAD- had normal coronaries on review of left heart catheterization done 2016 , GERD, Hx of DM type 2 insulin requiring,on Levemer 15 units hs who states that he ran out of medications for the past 3 days now. Supposeldly On Bumex Prevacid Zofran gabapentin Flexeril For the past 3 days has been complaining of increasing shortness of breath and leg swelling which prompted consult to ER and was noted to have an elevated troponin of 1.07 and a BNP in the 1999. Twelve-lead EKG shows sinus tachycardia with right bundle branch block pattern. Patient admitted for IV diuresis. Patient was seen by cardiology. Review of records shows multiple admissions here for CHF exacerbation. Patient states he was on patient assistance program Patient states he has history of smoking quit 10 years ago denies alcohol or IV drug use. Has a history of right inguinal hernia surgery. Inpatient Certification: I certify that the inpatient services were ordered in accordance with Medicare regulations governing the order. This includes certification that hospital inpatient services are reasonable and necessary and in the case of services not specified as inpatient-only under 42 CFR 419.22(n), that they are appropriately provided as inpatient services in accordance to with the 2-midnight benchmark under 43 CFR 412.3(e) Estimated Total Length of Stay (Days): 3 Plans for Post Hospital Care: Not yet determined Review of Systems Denies fever chills no headaches. Patient complains of severe reflux symptoms Denies any melena or hematochezia. [facility] - History History Provided By: Patient - Medical History Medical History: Medical History (Last Reviewed 02/12/18 @ 10:03 by Adam Gonzalez, PT) CHF (congestive heart failure) Chronic back pain Diabetes - Surgical History Surgical History: Surgical History (Last Reviewed 02/12/18 @ 10:03 by Adam Gonzalez, PT) H/O hernia repair - Tobacco History Tobacco Use In Past 30 Days: No Smoking Status: Former smoker - Alcohol History How Often Do You Have a Drink Containing Alcohol: Never - Substance Use History Substance History: No History of Abuse - Travel History Recent Travel in the [place] Within the Last 8 Weeks: No Recent Travel Out of the Country Within the Last 8 Weeks: No - Immunization History Tetanus Immunization: <5 Years Medications and Allergies Active Medications: Active Medications Acetaminophen (Tylenol) 650 mg PO Q4H PRN PRN Reason: Temp > 100.4 Al Hydroxide/Mg Hydroxide (Milk Of Magnesia Liq) 30 ml PO Q12H PRN PRN Reason: Mild Constipation Bisacodyl (Dulcolax Supp) 10 mg RECTAL DAILY PRN PRN Reason: SEVERE CONSITIPATION Bumetanide (Bumex Inj) 1 mg IV.PUSH BID@0900,1800 [facility] Carvedilol (Coreg) 6.25 mg PO BID [facility] Dextrose (D50w Vial) 50 ml IV.PUSH UNSCH PRN PRN Reason: PER HYPOGLYCEMIA PROTOCOL Gabapentin (Neurontin) 600 mg PO BID [facility] Last Admin: 02/10/18 08:42 Dose: 600 mg Glucagon (Glucagon Inj) 1 mg OTHER PRN PRN PRN Reason: for Hypoglycemia Protocol Insulin Aspart (Novolog Insulin Correctional Sugar Inj) 0 unit SQ ACHS [facility]; Protocol Lactulose (Lactulose Liq) 30 ml PO DAILY PRN PRN Reason: SEVERE CONSITIPATION Losartan Potassium (Cozaar) 25 mg PO DAILY [facility] Ondansetron HCl (Zofran Inj) 4 mg IV.PUSH Q6H PRN PRN Reason: NAUSEA OR VOMITING Last Admin: 02/10/18 08:42 Dose: 4 mg Pantoprazole Sodium (Protonix) 20 mg PO DAILY [facility] Last Admin: 02/10/18 08:42 Dose: 20 mg Potassium Chloride (Kcl) 10 meq PO DAILY [facility] Last Admin: 02/10/18 08:42 Dose: 10 meq Sennosides (Senokot) 17.2 mg PO Q12H PRN PRN Reason: Moderate Constipation Sodium Chloride (Ns Flush) 2 ml IV.FLUSH BID [facility] Last Admin: 02/10/18 08:42 Dose: 2 ml Sodium Chloride (Ns Flush) 2 ml IV.FLUSH PRN PRN PRN Reason: FLUSH AFTER USING IV ACCESS Allergies Allergy/AdvReac Type Severity Reaction Status Date / Time lisinopril Allergy Severe Swelling Verified 01/08/18 09:38 Sulfa (Sulfonamide Allergy Severe Anaphylaxis Verified 01/08/18 09:38 Antibiotics) Exam Vital signs: Vital Signs 02/10/18 03:29 02/10/18 03:35 02/10/18 04:28 Temperature 97.6 F Pulse Rate 116 H 116 H 112 H Respiratory Rate 22 22 Blood Pressure 131/87 133/80 Pulse Oximetry 92 L 93 L 95 02/10/18 06:40 02/10/18 08:00 Temperature 97.8 F Pulse Rate 108 H 110 H Respiratory Rate 20 18 Blood Pressure 145/94 H 130/86 Pulse Oximetry 98 97 Intake & Output 02/09/18 02/10/18 02/10/18 18:59 06:59 18:59 Output Total 1999 Balance -1999 Weight 90.718 kg Output: Urine 1999 Other: # Voids 5 Narrative: Awake alert oriented x3 not in any form of acute distress HEENT exam anicteric sclerae Neck supple no bruit Lungs decreased breath sounds no rales no wheezes Regular rhythm Abdomen soft nontender with good bowel sounds questionable mass right upper quadrant area Extremities +1 pitting edema Good peripheral pulses Neurologic exam nonfocal Results - Labs CBC & Chem 7: 02/11/18 07:22 02/14/18 05:50 Labs: Laboratory Results - last 24 hr 02/10/18 02/10/18 02/10/18 03:30 03:30 03:30 CBC w Diff Auto diff final WBC 7.6 RBC 4.66 Hgb 14.2 Hct 43.4 MCV 93.3 MCH 30.4 MCHC 32.6 RDW 14.6 Plt Count 189 MPV 8.4 Neut % (Auto) 67.3 Lymph % (Auto) 20.1 [place] % (Auto) 10.6 H Eos % (Auto) 0.8 Baso % (Auto) 1.2 Neut # (Auto) 5.1 Lymph # (Auto) 1.5 [place] # (Auto) 0.8 Eos # (Auto) 0.1 Baso # (Auto) 0.1 WBC Differential . Differential Comment . PT 12.5 H INR 1.2 APTT 29.0 Puncture Site Patient Temperature O2 Saturation ABG pH ABG pCO2 ABG pO2 ABG HCO3 ABG O2 Content ABG Base Excess ABG Methemoglobin Radu Test Hemoglobin Carboxyhemoglobin O2 Delivery Device Inspired O2 Critical Value Sodium 135 L Potassium 4.1 Chloride 100 Carbon Dioxide 27.2 Anion Gap 8 BUN 14 Creatinine 1.10 Estimated GFR 70 L POC Glucose Random Glucose 182 H Lactic Acid Calcium 8.2 L Magnesium 1.9 Total Bilirubin 2.4 H AST 42 H ALT 24 Alkaline Phosphatase 246 H Troponin I 1.03 H* B-Natriuretic Peptide Total Protein 7.2 Albumin 2.8 L 02/10/18 02/10/18 02/10/18 03:30 03:30 03:32 CBC w Diff WBC RBC Hgb Hct MCV MCH MCHC RDW Plt Count MPV Neut % (Auto) Lymph % (Auto) [place] % (Auto) Eos % (Auto) Baso % (Auto) Neut # (Auto) Lymph # (Auto) [place] # (Auto) Eos # (Auto) Baso # (Auto) WBC Differential Differential Comment PT INR APTT Puncture Site Patient Temperature O2 Saturation ABG pH ABG pCO2 ABG pO2 ABG HCO3 ABG O2 Content ABG Base Excess ABG Methemoglobin Radu Test Hemoglobin Carboxyhemoglobin O2 Delivery Device Inspired O2 Critical Value Sodium Potassium Chloride Carbon Dioxide Anion Gap BUN Creatinine Estimated GFR POC Glucose 159 H Random Glucose Lactic Acid 2.0 Calcium Magnesium Total Bilirubin AST ALT Alkaline Phosphatase Troponin I B-Natriuretic Peptide 2817 H Total Protein Albumin 02/10/18 02/10/18 02/10/18 03:48 06:33 08:38 CBC w Diff WBC RBC Hgb Hct MCV MCH MCHC RDW Plt Count MPV Neut % (Auto) Lymph % (Auto) [place] % (Auto) Eos % (Auto) Baso % (Auto) Neut # (Auto) Lymph # (Auto) [place] # (Auto) Eos # (Auto) Baso # (Auto) WBC Differential Differential Comment PT INR APTT Puncture Site Right radial Patient Temperature 98.6 O2 Saturation 96 ABG pH 7.46 H ABG pCO2 33 L ABG pO2 90 ABG HCO3 23 ABG O2 Content 18.4 ABG Base Excess -0.1 ABG Methemoglobin 1.0 Radu Test Present Hemoglobin 13.6 Carboxyhemoglobin 1.6 O2 Delivery Device Room air Inspired O2 21 Critical Value No Sodium Potassium Chloride Carbon Dioxide Anion Gap BUN Creatinine Estimated GFR POC Glucose 121 H Random Glucose Lactic Acid Calcium Magnesium Total Bilirubin AST ALT Alkaline Phosphatase Troponin I 1.00 H* B-Natriuretic Peptide Total Protein Albumin - Imaging Impressions Chest X-Ray 02/10/18 03:29 CONCLUSION: 1. Persistent cardiac silhouette enlargement. 2. New bilateral lower lung zone pulmonary opacity likely representing mild pulmonary edema. Caprini VTE Risk Assessment Caprini VTE Risk Assessment: No/Low Risk (score <= 1) Caprini Risk Assessment Model: Point Value = 1 Point Value = 2 Point Value = 3 Point Value = 5 Age 41-60 Minor surgery BMI > 25 kg/m2 Swollen legs Varicose veins or History of unexplained or recurrent spontaneous Oral contraceptives or hormone replacement Sepsis (< 1 month) Serious lung disease, including pneumonia (< 1 month) Abnormal pulmonary function Acute myocardial infarction Congestive heart failure (< 1 month) History of inflammatory bowel disease Medical patient at bed rest Age 61-74 Arthroscopic surgery Major open surgery (> 45 min) Laparoscopic surgery (> 45 min) Malignancy Confined to bed (> 72 hours) Immobilizing plaster cast Central venous access Age >= 75 History of VTE Family history of VTE Factor V Leiden Prothrombin [id number] Lupus anticoagulant Anticardiolipin antibodies Elevated serum homocysteine Heparin-induced thrombocytopenia Other congenital or acquired thrombophilia Stroke (< 1 month) Elective arthroplasty Hip, pelvis, or leg fracture Acute spinal cord injury (< 1 month) Prophylaxis Regimen: Total Risk Factor Score Risk Level Prophylaxis Regimen 0-1 Low Early ambulation 2 Moderate Order ONE of the following: *Sequential Compression Device (SCD) *Heparin 5000 units SQ BID 3-4 Higher Order ONE of the following medications: *Heparin 5000 units SQ TID *Enoxaparin/Lovenox 40 mg SQ daily (WT < 150 kg, CrCl > 30 mL/min) *Enoxaparin/Lovenox 30 mg SQ daily (WT < 150 kg, CrCl > 10-29 mL/min) *Enoxaparin/Lovenox 30 mg SQ BID (WT < 150 kg, CrCl > 30 mL/min) AND/OR *Sequential Compression Device (SCD) 5 or more Highest Order ONE of the following medications: *Heparin 5000 units SQ TID (Preferred with Epidurals) *Enoxaparin/Lovenox 40 mg SQ daily (WT < 150 kg, CrCl > 30 mL/min) *Enoxaparin/Lovenox 30 mg SQ daily (WT < 150 kg, CrCl > 10-29 mL/min) *Enoxaparin/Lovenox 30 mg SQ BID (WT < 150 kg, CrCl > 30 mL/min) AND *Sequential Compression Device (SCD) Assessment and Plan - Plan 52-year-old admitted for Acute CHF exacerbation with known cardiomyopathy with known EF of 20-25%. Noncompliance with medications .Started on IV Bumex bid, coreg, Cozaar Cardiology following GERD. Continue on PPI Diabetes type 2. Non compliance Continue on Levemir at 10 units at bedtime follow blood sugars 3 times daily at bedtime check hemoglobin A1c History of neuropathy continue on gabapentin Flexeril Increase activity- early ambulation Patient consult case management for patient assistance program and medications assistance
[2018-02-10] MEDS: Insulin NovoLOG Aspart Correctional Sugar Inj SQ SCH ×3 (12:19→20:01)
[2018-02-10 12:26] LABS: Amphetamine Screen,Urine Neg (Neg); Barbiturate Screen,Urine Neg (Neg); Cannabinoid Screen,Urine Neg (Neg); Cocaine Screen,Urine Neg (Neg)
[2018-02-10 12:27] LABS: Opiate Screen,Urine Neg (Neg)
[2018-02-10] MEDS: Carvedilol 6.25 MG Tablet PO SCH ×2 (12:29→20:01)
--- NOTE | 2018-02-10 18:41 | ECG ---
Date Performed: 02/10/2018 Time Performed: 15:50:28 PTAGE: 52 years EKG: Sinus rhythm . Possible left atrial abnormality Right bundle branch block Lateral T wave changes are nonspecific A bnormal ECG No significant change from prior electrocardiogram. DOCTOR: Soto [place] Interpretating Date/Time 02/10/2018 18:38:42
--- NOTE | 2018-02-10 21:46 | ECG ---
Date Performed: 02/10/2018 Time Performed: 06:17:24 PTAGE: 52 years EKG: SINUS TACHYCARDIA LEFT ATRIAL ENLARGEMENT RIGHT BUNDLE BRANCH BLOCK ABNORMAL ECG PREVIOUS TRACING : 02/10/2018 03.34 Since the previous tracing, no significant change noted DOCTOR: Riki Sigala Interpretating Date/Time 02/10/2018 21:45:30
--- NOTE | 2018-02-10 21:52 | ECG ---
Date Performed: 02/10/2018 Time Performed: 03:34:58 PTAGE: 52 years EKG: Since the previous tracing, no significant change noted SINUS TACHYCARDIA LEFT ATRIAL ENLAR GEMENT RIGHT BUNDLE BRANCH BLOCK ABNORMAL ECG PREVIOUS TRACING : 01/08/2018 09.56 DOCTOR: Riki Sigala Interpretating Date/Time 02/10/2018 21:50:57
[2018-02-11 07:40] LABS: Baso % (Auto) 0.7 % (0.0-2.0); Eos # (Auto) 0.1 th/mm3 (0.0-0.4); Eos % (Auto) 1.2 % (0.0-4.0); Hematocrit 43.4 % (39.0-51.0); Hemoglobin 14.5 gm/dL (13.0-17.0); Lymph # (Auto) 1.3 th/mm3 (1.0-4.8); Lymph % (Auto) 25.4 % (9.0-44.0); Mean Corpuscular HGB Conc 33.4 % (32.0-36.0); Mean Corpuscular Hemoglobin 31.5 pg (27.0-34.0); Mean Corpuscular Volume 94.3 fL (80.0-100.0); Mean Platelet Volume 8.2 fL (7.0-11.0); Mono # (Auto) 0.6 th/mm3 (0.0-0.9); Mono % (Auto) 12.6 % (0.0-8.0); Neut % (Auto) 60.1 % (16.0-70.0); Platelet Count 161 th/mm3 (150-450); Red Cell Distribution Width 15.3 % (11.6-17.2)
[2018-02-11 08:05] LABS: Alanine Aminotransferase 21 U/L (12-78); Albumin 2.4 g/dL (3.4-5.0); Anion Gap 9 meq/L (5-15); Aspartate Aminotransferase 33 U/L (15-37); Blood Urea Nitrogen 18 mg/dL (7-18); Calcium 8.6 mg/dL (8.5-10.1); Carbon Dioxide 28.5 meq/L (21.0-32.0); Chloride 98 meq/L (98-107); Glomerular Filtration Rate 63 mL/min (>89); Glucose,Random 146 mg/dL (74-106); Potassium 4.1 meq/L (3.5-5.1); Sodium 135 meq/L (136-145)
[2018-02-11 08:08] LABS: Alkaline Phosphatase 220 U/L (45-117); Total Protein 6.5 g/dL (6.4-8.2)
[2018-02-11] MEDS: Insulin NovoLOG Aspart Correctional Sugar Inj SQ SCH ×4 (08:19→21:13)
[2018-02-11] MEDS: Gabapentin 300 MG Capsule PO SCH ×2 (08:29→21:12)
[2018-02-11] MEDS: Potassium Chloride 10 MEQ ER Capsule PO SCH (08:30)
[2018-02-11] MEDS: Carvedilol 6.25 MG Tablet PO SCH ×2 (08:30→21:13)
[2018-02-11] MEDS: Pantoprazole Sodium 20 MG DR Tablet PO SCH (08:30)
--- NOTE | 2018-02-11 11:45 | P.PN ---
Subjective Interval history: still with leg swelling sinus rhythm up and ambulating- no chest discvomfort now states mentioned history of mass in the liver reviewed ER records- CT 05/2017 as ER visit - showed some mass- non well defined because ruy patel contrast reviewed US from 2015- liver daylin described- as hemangioamas failed to ff up- no insurance Physical Exam Vital signs: Vital Signs 02/10/18 12:00 02/10/18 13:00 02/10/18 13:37 Temperature 97.5 F L Pulse Rate 105 H 101 H 107 H Respiratory Rate 18 Blood Pressure 135/91 H Pulse Oximetry 96 02/10/18 15:00 02/10/18 16:00 02/10/18 17:00 Temperature 97.8 F Pulse Rate 102 H 102 H 98 H Respiratory Rate 18 Blood Pressure 107/83 Pulse Oximetry 96 02/10/18 18:00 02/10/18 20:00 02/10/18 21:00 Temperature 98.1 F Pulse Rate 100 H 93 H 96 H Respiratory Rate 22 Blood Pressure 106/68 Pulse Oximetry 97 02/10/18 22:00 02/10/18 23:00 02/11/18 00:00 Temperature 97.2 F L Pulse Rate 96 H 90 86 Respiratory Rate 20 Blood Pressure 96/56 L Pulse Oximetry 96 02/11/18 01:00 02/11/18 02:00 02/11/18 03:00 Temperature Pulse Rate 84 86 84 Respiratory Rate Blood Pressure Pulse Oximetry 02/11/18 04:00 02/11/18 05:00 02/11/18 06:00 Temperature 98 F Pulse Rate 86 90 86 Respiratory Rate 20 Blood Pressure 117/57 L Pulse Oximetry 93 L 02/11/18 07:00 02/11/18 08:00 02/11/18 09:00 Temperature 98.4 F Pulse Rate 78 98 H 92 H Respiratory Rate 19 Blood Pressure 98/68 L Pulse Oximetry 95 02/11/18 09:40 02/11/18 10:02 02/11/18 10:54 Temperature Pulse Rate 98 H 92 H Respiratory Rate Blood Pressure Pulse Oximetry 95 Intake & Output 02/10/18 02/11/18 02/11/18 18:59 06:59 18:59 Intake Total 1140 / 1140 480 / 480 Output Total 3725 / 3725 1974 Balance -2585 / -2585 -1495 / -1495 Weight 90.7 kg Intake: Oral 1140 / 1140 480 / 480 Output: Urine 3725 / 3725 1974 Other: Date of Last Bowel Movement 02/10/18 02/10/18 02/10/18 Narrative: GENERAL: Well-developed well-nourished. Appears uncomfortable and dyspneic sitting up in bed. NECK: No carotid bruits. No JVD. CARDIOVASCULAR: Regular rate and rhythm. No murmur appreciated. RESPIRATORY: Diminished breath sounds in the bases. MUSCULOSKELETAL: No clubbing or cyanosis. Chronic venous stasis skin changes with 1+ pitting edema. NEUROLOGICAL: Awake and alert. Normal speech. Results - Labs CBC & Chem 7: 02/11/18 07:22 02/14/18 05:50 Laboratory Results - last 24 hr 02/10/18 02/10/18 02/10/18 12:06 12:12 12:46 WBC RBC Hgb Hct MCV MCH MCHC RDW Plt Count MPV Neut % (Auto) Lymph % (Auto) [place] % (Auto) Eos % (Auto) Baso % (Auto) Neut # (Auto) Lymph # (Auto) [place] # (Auto) Eos # (Auto) Baso # (Auto) WBC Differential Differential Comment Sodium Potassium Chloride Carbon Dioxide Anion Gap BUN Creatinine Estimated GFR POC Glucose 139 H Random Glucose Calcium Total Bilirubin AST ALT Alkaline Phosphatase Troponin I 1.07 H* Total Protein Albumin Urine Opiates Screen Neg Ur Barbiturates Screen Neg Ur Amphetamines Screen Neg U Benzodiazepines Scrn Neg Urine Cocaine Screen Neg U Cannabinoids Screen Neg 02/10/18 02/10/18 02/11/18 16:27 19:45 07:22 WBC 5.0 RBC 4.60 Hgb 14.5 Hct 43.4 MCV 94.3 MCH 31.5 MCHC 33.4 RDW 15.3 Plt Count 161 MPV 8.2 Neut % (Auto) 60.1 Lymph % (Auto) 25.4 [place] % (Auto) 12.6 H Eos % (Auto) 1.2 Baso % (Auto) 0.7 Neut # (Auto) 3.0 Lymph # (Auto) 1.3 [place] # (Auto) 0.6 Eos # (Auto) 0.1 Baso # (Auto) 0.0 WBC Differential . Differential Comment Auto diff final Sodium Potassium Chloride Carbon Dioxide Anion Gap BUN Creatinine Estimated GFR POC Glucose 169 H 235 H Random Glucose Calcium Total Bilirubin AST ALT Alkaline Phosphatase Troponin I Total Protein Albumin Urine Opiates Screen Ur Barbiturates Screen Ur Amphetamines Screen U Benzodiazepines Scrn Urine Cocaine Screen U Cannabinoids Screen 02/11/18 02/11/18 07:22 11:33 WBC RBC Hgb Hct MCV MCH MCHC RDW Plt Count MPV Neut % (Auto) Lymph % (Auto) [place] % (Auto) Eos % (Auto) Baso % (Auto) Neut # (Auto) Lymph # (Auto) [place] # (Auto) Eos # (Auto) Baso # (Auto) WBC Differential Differential Comment Sodium 135 L Potassium 4.1 Chloride 98 Carbon Dioxide 28.5 Anion Gap 9 BUN 18 Creatinine 1.21 Estimated GFR 63 L POC Glucose 214 H Random Glucose 146 H Calcium 8.6 Total Bilirubin 2.6 H AST 33 ALT 21 Alkaline Phosphatase 220 H Troponin I Total Protein 6.5 D Albumin 2.4 L Urine Opiates Screen Ur Barbiturates Screen Ur Amphetamines Screen U Benzodiazepines Scrn Urine Cocaine Screen U Cannabinoids Screen Microbiology 02/10/18 03:25 Blood - Peripheral Aerobic Blood Culture - Preliminary No growth in 1 day 02/10/18 03:25 Blood - Peripheral Anaerobic Blood Culture - Preliminary No growth in 1 day 02/10/18 03:30 Blood - Peripheral Aerobic Blood Culture - Preliminary No growth in 1 day 02/10/18 03:30 Blood - Peripheral Anaerobic Blood Culture - Preliminary No growth in 1 day Assessment and Plan - Plan 52-year-old admitted for Acute CHF exacerbation with known cardiomyopathy with known EF of 20-25%. Noncompliance with medications - on IV Bumex bid, coreg, Cozaar Cardiology following GERD. Continue on PPI Diabetes type 2. Continue on Levemir 10 units at bedtime follow blood sugars 3 times daily at bedtime check hemoglobin A1c History of neuropathy continue on gabapentin Flexeril History of Liver mass -patient brought this up - concerned - I reviewed previous imaging studies- CT abdomen 05/2017- shows liver mass- right lobe- not well defined on further review of record- same mass seen on US 2016- defined as hemangiomas - failed to ff up as OP-because of no insurance - will get US of the abdomen- liver to confirm- mass vs hemangioma- if confirm solid mass suspicious for malignancy- work up with tumor markers or biopsy Increase activity- early ambulation Patient consult case management for patient assistance program and medications assistance
[2018-02-11 16:29] LABS: Hemoglobin A1c 10.9 % (4.3-6.0)
--- NOTE | 2018-02-11 20:36 | US ---
EXAM DATE: 02/11/2018 8:27 PM EST AGE/SEX: 52 years / Male INDICATIONS: Elevated lab values. CLINICAL DATA: This is the patient's initial encounter. Patient reports that signs and symptoms have been present for 1 day and indicates a pain score of 0/10. MEDICAL/SURGICAL HISTORY: Congestive heart failure. Diabetes mellitus type II. Chronic back pa in. Cardiomyopathy. CAD. . Hernia repair. Left heart cath. COMPARISON: PO, CT PULMONARY ANGIOGRAM, 03/21/2017. . MEASUREMENTS: Liver:__ 15 cm. Common Bile Duct:__ 3mm. Right Kidney:__ 10.1 x 6.2 x 5.0 cm. FINDINGS: Liver: Exam remains limited by the patient's body habitus. Liver remains prominent with a 2.5 similar hyper-area in the right lobe. There is no ductal dilatation. Portal Vein: Hepatopedal flow seen in portal vein. Common Duct: No intraluminal mass or stone visualized. Gallbladder: Gallbladder is unremarkable Pancreas: The visualized portions are within normal limits Right Kidney: Normal echogenicity and cortical thickness. No mass or hydronephrosis. Other: None. CONCLUSION: 1. Exam remains limited. Evaluation of the liver is best accomplished with contrasted CT or MRI. Electronically signed by: Rodríguez Nicholson MD Board Certified Radiologist 02/11/2018 8:35 PM EST
[2018-02-12 07:03] LABS: Calcium 8.4 mg/dL (8.5-10.1); Carbon Dioxide 28.5 meq/L (21.0-32.0)
--- NOTE | 2018-02-12 07:39 | P.PNCA ---
Subjective Interval history: Patient reports episode of vomiting last night. Shortness of breath, orthopnea , leg swelling have improved. Telemetry with NSVT 4 beats last night. Denies chest pain, palpitations. Reports anxiety with vomiting. Medications and Allergies Allergies Allergy/AdvReac Type Severity Reaction Status Date / Time lisinopril Allergy Severe Swelling Verified 01/08/18 09:38 Sulfa (Sulfonamide Allergy Severe Anaphylaxis Verified 01/08/18 09:38 Antibiotics) Home Medications Medication Instructions Recorded Confirmed Type cyclobenzaprine 10 mg PO TID PRN 01/08/18 02/10/18 History furosemide 40 mg PO BID 01/08/18 02/10/18 History gabapentin 600 mg PO BID 01/08/18 02/10/18 History meclizine 25 mg PO DAILY PRN 01/08/18 02/10/18 History omeprazole magnesium [Prilosec OTC] 20 mg PO DAILY 01/08/18 02/10/18 History Active Medications: Active Medications Acetaminophen (Tylenol) 650 mg PO Q4H PRN PRN Reason: Temp > 100.4 Al Hydroxide/Mg Hydroxide (Milk Of Magnesia Liq) 30 ml PO Q12H PRN PRN Reason: Mild Constipation Bisacodyl (Dulcolax Supp) 10 mg RECTAL DAILY PRN PRN Reason: SEVERE CONSITIPATION Carvedilol (Coreg) 6.25 mg PO BID [facility] Last Admin: 02/11/18 21:13 Dose: 6.25 mg Cyclobenzaprine HCl (Flexeril) 5 mg PO Q8H PRN PRN Reason: back spasm Last Admin: 02/11/18 08:29 Dose: 5 mg Dextrose (D50w Vial) 50 ml IV.PUSH UNSCH PRN PRN Reason: PER HYPOGLYCEMIA PROTOCOL Gabapentin (Neurontin) 600 mg PO BID [facility] Last Admin: 02/11/18 21:12 Dose: 600 mg Glucagon (Glucagon Inj) 1 mg OTHER PRN PRN PRN Reason: for Hypoglycemia Protocol Insulin Aspart (Novolog Insulin Correctional Sugar Inj) 0 unit SQ ACHS [facility]; Protocol Last Admin: 02/11/18 21:13 Dose: Not Given Lactulose (Lactulose Liq) 30 ml PO DAILY PRN PRN Reason: SEVERE CONSITIPATION Losartan Potassium (Cozaar) 25 mg PO DAILY [facility] Last Admin: 02/11/18 08:29 Dose: 25 mg Ondansetron HCl (Zofran Inj) 4 mg IV.PUSH Q6H PRN PRN Reason: NAUSEA OR VOMITING Last Admin: 02/12/18 02:09 Dose: 4 mg Pantoprazole Sodium (Protonix) 20 mg PO DAILY [facility] Last Admin: 02/11/18 08:30 Dose: 20 mg Potassium Chloride (Kcl) 10 meq PO DAILY [facility] Last Admin: 02/11/18 08:30 Dose: 10 meq Sennosides (Senokot) 17.2 mg PO Q12H PRN PRN Reason: Moderate Constipation Sodium Chloride (Ns Flush) 2 ml IV.FLUSH BID [facility] Last Admin: 02/11/18 21:12 Dose: 2 ml Sodium Chloride (Ns Flush) 2 ml IV.FLUSH PRN PRN PRN Reason: FLUSH AFTER USING IV ACCESS Physical Exam Vital signs: Vital Signs 02/11/18 08:00 02/11/18 09:00 02/11/18 09:40 Temperature 98.4 F Pulse Rate 98 H 92 H 98 H Respiratory Rate 19 Blood Pressure 98/68 L Pulse Oximetry 95 02/11/18 10:02 02/11/18 10:54 02/11/18 12:00 Temperature 98.4 F Pulse Rate 92 H 95 H Respiratory Rate 22 Blood Pressure 99/78 L Pulse Oximetry 95 98 02/11/18 12:58 02/11/18 14:00 02/11/18 14:09 Temperature Pulse Rate 92 H 80 81 Respiratory Rate Blood Pressure Pulse Oximetry 02/11/18 15:35 02/11/18 15:37 02/11/18 16:54 Temperature 98.4 F Pulse Rate 86 90 78 Respiratory Rate 18 Blood Pressure 100/65 Pulse Oximetry 94 L 02/11/18 18:00 02/11/18 19:00 02/11/18 20:00 Temperature 97.8 F Pulse Rate 90 93 H 90 Respiratory Rate 18 Blood Pressure 95/66 L Pulse Oximetry 98 02/11/18 21:00 02/11/18 22:00 02/11/18 23:00 Temperature Pulse Rate 92 H 92 H 97 H Respiratory Rate Blood Pressure Pulse Oximetry 02/12/18 00:00 02/12/18 01:00 02/12/18 02:00 Temperature 97.1 F L Pulse Rate 86 91 H 96 H Respiratory Rate 18 Blood Pressure 82/57 L Pulse Oximetry 95 02/12/18 03:00 02/12/18 04:00 02/12/18 05:00 Temperature 97.7 F Pulse Rate 89 88 90 Respiratory Rate 20 Blood Pressure 98/70 L Pulse Oximetry 96 02/12/18 06:00 Temperature Pulse Rate 86 Respiratory Rate Blood Pressure Pulse Oximetry Intake & Output 02/11/18 02/12/18 02/12/18 18:59 06:59 18:59 Intake Total 720 / 720 720 / 720 Output Total 2099 1375 / 1375 Balance -1380 / -1380 -655 / -655 Weight 188 lb 7.924 oz Intake: Oral 720 / 720 720 / 720 Output: Urine 2099 1375 / 1375 Other: Date of Last Bowel Movement 02/10/18 Narrative: GENERAL: Well-developed well-nourished. NECK: No carotid bruits. No JVD. CARDIOVASCULAR: Regular rate and rhythm. No murmur appreciated. RESPIRATORY: Clear to auscultation bilaterally. MUSCULOSKELETAL: No clubbing or cyanosis. Chronic venous stasis skin changes with 1+ pitting edema. NEUROLOGICAL: Awake and alert. Normal speech. Results 02/11/18 07:22 02/12/18 05:54 Cardiac Enzymes 02/10/18 02/11/18 Range/Units 12:46 07:22 AST 33 (15-37) U/L Troponin I 1.07 H* (0.02-0.05) ng/mL CBC 02/11/18 Range/Units 07:22 WBC 5.0 (4.0-11.0) th/mm3 RBC 4.60 (4.50-5.90) mil/mm3 Hgb 14.5 (13.0-17.0) gm/dL Hct 43.4 (39.0-51.0) % Plt Count 161 (150-450) th/mm3 Neut # (Auto) 3.0 (1.8-7.7) th/mm3 Lymph # (Auto) 1.3 (1.0-4.8) th/mm3 [place] # (Auto) 0.6 (0.0-0.9) th/mm3 Eos # (Auto) 0.1 (0.0-0.4) th/mm3 Baso # (Auto) 0.0 (0.0-0.2) th/mm3 Comprehensive Metabolic Panel 02/11/18 02/12/18 Range/Units 07:22 05:54 Sodium 135 L 134 L (136-145) meq/L Potassium 4.1 4.0 (3.5-5.1) meq/L Chloride 98 97 L (98-107) meq/L Carbon Dioxide 28.5 28.5 (21.0-32.0) meq/L BUN 18 23 H (7-18) mg/dL Creatinine 1.21 1.46 H (0.60-1.30) mg/dL Calcium 8.6 8.4 L (8.5-10.1) mg/dL AST 33 (15-37) U/L ALT 21 (12-78) U/L Alkaline Phosphatase 220 H (45-117) U/L Total Protein 6.5 D (6.4-8.2) g/dL Albumin 2.4 L (3.4-5.0) g/dL Intake and Output 02/11/18 02/12/18 02/12/18 22:59 06:59 14:59 Intake Total 720 / 720 720 / 720 Output Total 2100 / 2100 1375 / 1375 Balance -1380 / -1380 -655 / -655 Intake: Oral 720 / 720 720 / 720 Output: Urine 2100 / 2100 1375 / 1375 Other: Date of Last Bowel Movement 02/10/18 Weight 188 lb 7.924 oz - Imaging and Cardiology Imaging: Impressions Liver Ultrasound 02/11/18 00:00 CONCLUSION: 1. Exam remains limited. Evaluation of the liver is best accomplished with contrasted CT or MRI. Assessment and Plan - Plan 52-year-old male with chronic systolic CHF who presented for CHF exacerbation. CHF exacerbation: DEB with diuresis and vomiting. Hold diuresis for now. Will likely be discharged with Bumex 1 mg p.o. at discharge. Closely follow I's and O's, electrolytes, and renal function. Cardiomyopathy: Continue carvedilol 6.25 mg twice daily and losartan 25 mg daily with lisinopril allergy; hold parameters with vomiting/hypotension. NSVT: Check updated echocardiogram and Lexiscan. Continue beta-scott. Discussed Condition With: Patient, Dr. Yoon - Attending Attestation DC losartan titrate coreg repeat echo/lexiscan secondary to NSVT
[2018-02-12] MEDS: Potassium Chloride 10 MEQ ER Capsule PO SCH (09:09)
[2018-02-12] MEDS: Gabapentin 300 MG Capsule PO SCH ×2 (09:09→22:09)
[2018-02-12] MEDS: Pantoprazole Sodium 20 MG DR Tablet PO SCH (09:10)
[2018-02-12] MEDS: Carvedilol 6.25 MG Tablet PO SCH ×2 (09:10→22:09)
[2018-02-12] MEDS: Insulin NovoLOG Aspart Correctional Sugar Inj SQ SCH ×4 (09:11→22:12)
--- NOTE | 2018-02-12 12:50 | P.PNIM ---
Subjective Interval history: Follow-up for hyperglycemia, shortness of breath and liver mass Blood glucose in the 200s, shortness of breath a lot better, denies any chest pain. Had NSVT overnight on telemetry. Physical Exam Vital signs: Last Vital Signs Temp 97.4 F L 02/12/18 08:00 Pulse 81 02/12/18 11:00 Resp 16 02/12/18 08:00 BP 106/73 02/12/18 08:00 Pulse Ox 98 02/12/18 08:00 Intake & Output 02/10/18 02/11/18 02/12/18 02/13/18 06:59 06:59 06:59 06:59 Intake Total 1620 / 1620 1440 / 1440 Output Total 1999 5700 / 5700 3475 / 3475 Balance -1999 / -4079 / -4079 -2034 / Weight 90.718 kg 90.7 kg 85.5 kg Narrative: GENERAL: Well-developed well-nourished. CARDIOVASCULAR: Regular rate and rhythm. No murmur appreciated. RESPIRATORY: Clear to auscultation bilaterally. Gastrointestinal: Abdomen soft, nontender, no hepatic mass appreciated. MUSCULOSKELETAL: No clubbing or cyanosis. Chronic venous stasis skin changes with 1+ pitting edema. NEUROLOGICAL: Awake and alert. Normal speech. Results Labs CBC & Chem 7: 02/11/18 07:22 02/12/18 05:54 Labs: Microbiology 02/10/18 03:25 Blood - Peripheral Aerobic Blood Culture - Preliminary No growth in 2 days 02/10/18 03:25 Blood - Peripheral Anaerobic Blood Culture - Preliminary No growth in 2 days 02/10/18 03:30 Blood - Peripheral Aerobic Blood Culture - Preliminary No growth in 2 days 02/10/18 03:30 Blood - Peripheral Anaerobic Blood Culture - Preliminary No growth in 2 days Imaging Imaging: Impressions Liver Ultrasound 02/11/18 00:00 CONCLUSION: 1. Exam remains limited. Evaluation of the liver is best accomplished with contrasted CT or MRI. Assessment and Plan Plan This is a 52-year-old male with history of cardiomyopathy with ejection fraction of 20-25%, diabetes mellitus, coronary artery disease with normal coronaries on cardiac catheterization 2016, ran out of medications, presented to the hospital for shortness of breath and leg swelling. Troponin I 0.07, BNP 2000, EKG shows sinus rhythm, possible LAE, right bundle branch block. Acute congestive heart failure exacerbation, systolic-ejection fraction 20-25%, with noncompliance. On Bumex twice a day intravenously, hold for now with DEB from diuresis. Continue Coreg titrate up to 12.5 mg twice a day, stop losartan , patient has lisinopril allergy, cardiology consulted and recommends likely discharged on Bumex 1 mg p.o. daily. Follow-up echocardiogram and check Lexiscan. [id number] echocardiogram and Lexiscan. Acute renal failure-hold diuresis, creatinine went up from 1.21-1.46, recheck BMP tomorrow. Diabetes type 2, uncontrolled, with neuropathy-blood glucose in the 200s, Continue on Levemir 8 units at bedtime , accuchecks, hgba1c 10.9, continue gabapentin. History of Liver mass -patient brought this up - concerned. Images reviewed, CT abdomen 05/2017 shows liver mass, right lobe, not well defined on further review of record- same mass seen on US 2015, defined as hemangiomas, - failed to ff up as OP-because of no insurance. Check abdominal CT scan with contrast to follow-up liver mass when creatinine is stable. If mass suspicious, would need follow-up as outpatient/mandatory referral GERD. Continue on PPI Disposition: Discharge to home when ready. Cleared by PT DVT prophylaxis: Heparin
[2018-02-12] MEDS: Heparin - SQ 10,000 UNITS/ML Vial SQ SCH ×2 (16:42→22:10)
[2018-02-12] MEDS: Insulin Detemir Inj 1,000 UNIT/10 ML Vial SQ SCH (22:11)
--- NOTE | 2018-02-12 23:15 | ECHRPT ---
Indication: Cardiomyopathy CONCLUSIONS Normal left ventricular size. Wall thickness is measured at the upper limits of normal. The left ventricular systolic function is severely reduced with an estimated ejection fraction in th e range of 20-25%. The right ventricle is moderately dilated. The left atrial size is mildly dilated. The right atrial size is [id number] dilated. Mild mitral valve regurgitation. There is mild tricuspid valve regurgitation. The estimated pulmonary arterial pressure is 40 mmHg. There is a small pericardial effusion present. BP: / HR: Rhythm: MEASUREMENTS (Male / Female) Normal Values Technical Quality:Good 2D ECHO LV Diastolic Diameter PLAX 5.5 cm 4.2 - 5.9 / 3.9 - 5.3 cm LV Systolic Diameter PLAX 4.8 cm IVS Diastolic Thickness 1.0 cm 0.6 - 1.0 / 0.6 - 0.9 cm LVPW Diastolic Thickness 1.1 cm 0.6 - 1.0 / 0.6 - 0.9 cm LV Relative Wall Thickness 0.4 RV Internal Dim ED PLAX 5.1 cm LVOT Diameter 2.0 cm Aortic Root Diameter 3.0 cm LA Systolic Diameter LX 4.5 cm 3.0 - 4.0 / 2.7 - 3.8 cm M-MODE AV Cusp Separation MM 2.1 cm DOPPLER AV Peak Velocity 90.0 cm/s AV Peak Gradient 3.2 mmHg LVOT Peak Velocity 85.4 cm/s LVOT Peak Gradient 2.9 mmHg AV Area Cont Eq pk 3.0 cm Mitral E Point Velocity 63.2 cm/s Mitral A Point Velocity 83.4 cm/s Mitral E to A Ratio 0.8 LV E' Lateral Velocity 4.4 cm/s Mitral E to LV E' Lateral Ratio 14.5 LV E' Septal Velocity 4.0 cm/s Mitral E to LV E' Septal Ratio 15.9 TR Peak Velocity 274.0 cm/s TR Peak Gradient 30.0 mmHg Right Atrial Pressure 10.0 mmHg Pulmonary Artery Systolic Pressu 40.0 mmHg Right Ventricular Systolic Press 40.0 mmHg PV Peak Velocity 78.7 cm/s PV Peak Gradient 2.5 mmHg FINDINGS LEFT VENTRICLE Normal left ventricular size. Wall thickness is measured at the upper limits of normal. The left ventricular systolic function is severely reduced with an estimated ejection fraction in th e range of 20-25%. RIGHT VENTRICLE The right ventricle is moderately dilated. LEFT ATRIUM The left atrial size is mildly dilated. RIGHT ATRIUM The right atrial size is [id number] dilated. ATRIAL SEPTUM Normal atrial septal thickness without atrial level shunting by limited color doppler interrogation. AORTA The aortic root and proximal ascending aorta are normal in size on limited imaging. MITRAL VALVE Mild mitral valve regurgitation. AORTIC VALVE Trileaflet aortic valve. No aortic valve stenosis or regurgitation. TRICUSPID VALVE There is mild tricuspid valve regurgitation. The estimated pulmonary arterial pressure is 40 mmHg. PULMONARY VALVE No pulmonary valve regurgitation or stenosis. VESSELS The inferior vena cava is dilated. There is less than 50% respiratory change in dimension of the inferior vena cava (abnormal). PERICARDIUM There is a small pericardial effusion present. Buzz Beltre MD, FACC (Electronically Signed) Final Date:12 February 2018 23:12
[2018-02-13] MEDS: Heparin - SQ 10,000 UNITS/ML Vial SQ SCH ×3 (05:57→21:07)
[2018-02-13] MEDS: Pantoprazole Sodium 20 MG DR Tablet PO SCH (08:23)
[2018-02-13] MEDS: Gabapentin 300 MG Capsule PO SCH ×2 (08:23→21:05)
[2018-02-13] MEDS: Carvedilol 6.25 MG Tablet PO SCH ×2 (08:23→21:05)
[2018-02-13] MEDS: Potassium Chloride 10 MEQ ER Capsule PO SCH (08:23)
[2018-02-13 08:39] LABS: Calcium 8.4 mg/dL (8.5-10.1); Carbon Dioxide 28.8 meq/L (21.0-32.0); Potassium 3.8 meq/L (3.5-5.1)
[2018-02-13] MEDS: Insulin NovoLOG Aspart Correctional Sugar Inj SQ SCH ×4 (08:46→21:06)
[2018-02-13] MEDS ORDERED: Regadenoson Inj 0.4 MG/5 ML Syringe IV.PUSH ONE (09:39)
--- NOTE | 2018-02-13 09:40 | P.PNIM ---
Subjective Interval history: Follow-up for shortness of breath No chest pain no nausea, no vomiting. No abdominal pain. Creatinine is still 1.46. Status post Lexiscan. Physical Exam Vital signs: Last Vital Signs Temp 97.4 F L 02/13/18 07:00 Pulse 90 02/13/18 07:00 Resp 20 02/13/18 07:00 BP 95/69 L 02/13/18 07:00 Pulse Ox 99 02/13/18 08:00 Intake & Output 02/11/18 02/12/18 02/13/18 02/14/18 06:59 06:59 06:59 06:59 Intake Total 1620 / 1620 1440 / 1440 840 / 840 Output Total 5700 / 5700 3475 / 3475 1750 / 1750 Balance -4080 / -4080 -2035 / -2035 -910 / -910 Weight 90.7 kg 85.5 kg 86 kg Narrative: GENERAL: Well-developed well-nourished. CARDIOVASCULAR: Regular rate and rhythm. No murmur appreciated. RESPIRATORY: Clear to auscultation bilaterally. No crackles. Gastrointestinal: Abdomen soft, nontender, no hepatic mass appreciated. MUSCULOSKELETAL: No clubbing or cyanosis. Chronic venous stasis skin changes with trace pitting edema. NEUROLOGICAL: Awake and alert. Normal speech. Results Labs CBC & Chem 7: 02/11/18 07:22 02/13/18 06:47 Labs: Microbiology 02/10/18 03:25 Blood - Peripheral Aerobic Blood Culture - Preliminary No growth in 2 days 02/10/18 03:25 Blood - Peripheral Anaerobic Blood Culture - Preliminary No growth in 2 days 02/10/18 03:30 Blood - Peripheral Aerobic Blood Culture - Preliminary No growth in 2 days 02/10/18 03:30 Blood - Peripheral Anaerobic Blood Culture - Preliminary No growth in 2 days Assessment and Plan Plan This is a 52-year-old male with history of cardiomyopathy with ejection fraction of 20-25%, diabetes mellitus, coronary artery disease with normal coronaries on cardiac catheterization 2016, ran out of medications, presented to the hospital for shortness of breath and leg swelling. Troponin I 0.07, BNP 2000, EKG shows sinus rhythm, possible LAE, right bundle branch block. Patient' s ejection fraction is 20-25% with noncompliance. Patient started on Bumex but currently on hold because of acute renal failure. Lexiscan done after an episode of NSVT did not show any fixed or reversible perfusion defect but with diffuse hypokinesis with ejection fraction of 12%. Acute congestive heart failure exacerbation, systolic-ejection fraction 20-25%, with noncompliance - On Bumex twice a day intravenously, on hold for now with DEB from diuresis. Continue Coreg 12.5 mg twice a day, losartan stopped with rising creatinine, patient has lisinopril allergy, cardiology consulted and recommends likely discharged on Bumex 1 mg p.o. daily. Echocardiogram showed ejection fraction of 20-25%, Lexiscan done did not show any fixed or reversible perfusion defect but ventricle with diffuse hypokinesis. Ejection fraction is 12%. NSVT-Lexiscan and echocardiogram as above, awaiting cardiology input. Acute renal failure-hold diuresis, creatinine went up from 1.21 to 1.46, creatinine stable at 1.46, previously normal. Diuretics on hold. Recheck BMP tomorrow. Diabetes type 2, uncontrolled, with neuropathy-blood glucose in the 130s-200s, continue on Levemir 8 units at bedtime , accuchecks, hgba1c 10.9, continue gabapentin. History of Liver mass -patient brought this up - concerned. Images reviewed, CT abdomen 05/2017 shows liver mass, right lobe, not well defined on further review of record- same mass seen on US 2016, defined as hemangiomas, - failed to ff up as OP-because of no insurance. Needs an abdominal CT scan For evaluation of liver mass, may be done as outpatient with an outpatient BMP check for Crea. Consult case management for mandatory referral when creatinine is better. GERD. Continue on PPI Disposition: Discharge to home when ready. Cleared by PT DVT prophylaxis: Heparin
--- NOTE | 2018-02-13 10:25 | NM ---
EXAM DATE: 02/13/2018 10:14 AM EST AGE/SEX: 52 years / Male INDICATIONS:Myocardial infarction. . Congestive heart failure. CLINICAL DATA: This is the patient's initial encounter. Patient reports that signs and symptoms have been present for 1 day and indicates a pain score of 1/10. MEDICAL/SURGICAL HISTORY: Congestive heart failure. Diabetes. Chronic back pain. . Hernia rep air. COMPARISON: No prior exams available for comparison. DOSE: 30 mCi Tc 99m Myoview at rest 31.8 mCi [id number] at stress 0.4 mg Lexiscan STRESS SYMPTOMS: Lightheadedness, throat tightness and nausea. EJECTION FRACTION: 12 % TECHNIQUE: The patient underwent pharmacologic stress with infusion of prescribed dose. Continuous ECG tracing was monitored during stress. Gated SPECT imaging was performed after stress and conventi onal SPECT imaging was performed at rest. The examination was performed on a SPECT/CT scanner, both attenuation and non-corrected datasets were reviewed. Two day protocol was used. FINDINGS: Distribution: The maximum perfused segment at stress is in the lateral wall. Perfusion Study: The pattern of perfusion at stress is within normal limits. Gated Study: There is global hypokinesis. Both right and left ventricles appear dilated. The ejecti on fraction is calculated at 12%. RISK CATEGORY: High (>3% Annual Morality Rate) CONCLUSION: 1. There are no fixed or reversible perfusion defects seen, however, both right and left ventricles are dilated and there is diffuse hypokinesis present with a low ejection fraction. Electronically signed by: Rosalva Benito MD Board Certified Radiologist 02/13/2018 10:23 AM Irma JACQUES
[2018-02-13] MEDS: Insulin Detemir Inj 1,000 UNIT/10 ML Vial SQ SCH (21:06)
[2018-02-14] MEDS: Heparin - SQ 10,000 UNITS/ML Vial SQ SCH ×3 (06:14→21:15)
[2018-02-14] MEDS: Insulin NovoLOG Aspart Correctional Sugar Inj SQ SCH ×4 (08:02→21:14)
[2018-02-14 08:03] LABS: Calcium 8.1 mg/dL (8.5-10.1); Carbon Dioxide 26.8 meq/L (21.0-32.0); Potassium 3.6 meq/L (3.5-5.1)
[2018-02-14] MEDS: Pantoprazole Sodium 20 MG DR Tablet PO SCH (08:04)
[2018-02-14] MEDS: Carvedilol 6.25 MG Tablet PO SCH ×2 (08:04→21:13)
[2018-02-14] MEDS: Potassium Chloride 10 MEQ ER Capsule PO SCH (08:04)
[2018-02-14] MEDS: Gabapentin 300 MG Capsule PO SCH ×2 (08:04→21:13)
[2018-02-14] MEDS ORDERED: Diatrizoate Meglum/Diatrizoate Sod Liq 9 ML UDC PO ONE (08:08)
--- NOTE | 2018-02-14 08:48 | P.DS ---
DS: Providers Date of admission: 02/10/18 05:04 Primary care physician: No Primary Care Physician Consults: 02/10/18 05:51 Consult to Cardiology Routine Consulting Provider: Riki Sigala Does the patient have a Shoe Caser who follows them?: No Preferred Hadoop Engineer:: Manager Emergency Physician Reason for Consultation: CHF exacerbation Notified:: Service Spoke with:: APRIL Date Notified:: 02/10/18 Time Notified:: 06:09 Ordering Provider: JAIME Brief History from admission: Patient is a 52-year-old male with history of cardiomyopathy ejection fraction of 20-25%, history of CAD- had normal coronaries on review of left heart catheterization done 2016 who GERD, who states that he ran out of medications for the past 3 days now.history of diabetes type 2 insulin requiring states approximately uses Levemir about 15 units at bedtime. On Bumex Prevacid Zofran gabapentin Flexeril For the past 3 days has been complaining of increasing shortness of breath and leg swelling which prompted consult to ER and was noted to have an elevated troponin of 1.07 and a BNP in the 1999. Twelve-lead EKG shows sinus tachycardia with right bundle branch block pattern. Patient admitted for IV diuresis. Patient was seen by cardiology. Review of records shows multiple admissions here for CHF exacerbation. Patient states he was on patient assistance program Patient states he has history of smoking quit 10 years ago denies alcohol or IV drug use. Has a history of right inguinal hernia surgery. DS: Diagnosis Discharge Diagnosis (1) Systolic CHF, acute: Status: Acute Diagnosis: Principal (2) NSVT (nonsustained ventricular tachycardia): Status: Acute (3) ARF (acute renal failure): Status: Acute (4) Diabetes mellitus type 2 with complications, uncontrolled: Status: Acute (5) Liver mass: Status: Acute DS: Summary This is a 52-year-old male with history of cardiomyopathy with ejection fraction of 20-25%, diabetes mellitus, coronary artery disease with normal coronaries on cardiac catheterization 2015, ran out of medications, presented to the hospital for shortness of breath and leg swelling. Troponin I 0.07, BNP 1999, EKG shows sinus rhythm, possible LAE, right bundle branch block. Patient' s ejection fraction is 20-25% with noncompliance per echocardiogram. Patient also had an episode of NSVT during hospitalization. Lexiscan done after an episode of NSVT did not show any fixed or reversible perfusion defect but with diffuse hypokinesis with ejection fraction of 12%. Diuretics was held for several days because of increasing creatinine. Creatinine now normal, patient will be restarted on his Bumex dose, Coreg, losartan stopped with rising creatinine, patient has lisinopril allergy. Other issues that were addressed during the patient's hospital stay: Diabetes type 2, uncontrolled, with neuropathy, blood glucose in the 130s-200s, continue on Levemir 8 units at bedtime , hgba1c 10.9, continue gabapentin. Patient has a history of liver mass, CT abdomen 05/2017 shows liver mass, right lobe, not well defined on further review of record- same mass seen on US 2016, defined as hemangiomas, failed to ff up as OP-because of no insurance. CT scan of the abdomen done prior to discharge creatinine was better. Consult case management for mandatory referral when creatinine is better. Time Spent with Patient Total time spent providing and/or coordinating discharge services: Greater than 30 minutes Exam Narrative Exam Narrative: GENERAL: Well-developed well-nourished. CARDIOVASCULAR: Regular rate and rhythm. No murmur appreciated. RESPIRATORY: Clear to auscultation bilaterally. No crackles. Gastrointestinal: Abdomen soft, nontender, no hepatic mass appreciated. MUSCULOSKELETAL: No clubbing or cyanosis. Chronic venous stasis skin changes with trace pitting edema. NEUROLOGICAL: Awake and alert. Normal speech. Results Labs on day of discharge: Labs from last 24 hours 02/14/18 02/14/18 02/13/18 07:59 05:50 20:50 Sodium 136 Potassium 3.6 Chloride 101 Carbon Dioxide 26.8 Anion Gap 8 BUN 21 H Creatinine 1.24 Estimated GFR 61 L POC Glucose 194 H 231 H Random Glucose 255 H D Calcium 8.1 L 02/13/18 02/13/18 02/13/18 16:17 11:45 06:47 Sodium 136 Potassium 3.8 Chloride 99 Carbon Dioxide 28.8 Anion Gap 8 BUN 24 H Creatinine 1.46 H Estimated GFR 51 L POC Glucose 150 H 214 H Random Glucose 103 D Calcium 8.4 L Preliminary micro results at discharge 02/10/18 03:25 Aerobic Blood Culture - Preliminary Blood - Peripheral No growth in 3 days Anaerobic Blood Culture - Preliminary No growth in 3 days 02/10/18 03:30 Aerobic Blood Culture - Preliminary Blood - Peripheral No growth in 3 days Anaerobic Blood Culture - Preliminary No growth in 3 days Impressions ITS Impressions Chest X-Ray 02/10/18 03:29 CONCLUSION: 1. Persistent cardiac silhouette enlargement. 2. New bilateral lower lung zone pulmonary opacity likely representing mild pulmonary edema. Liver Ultrasound 02/11/18 00:00 CONCLUSION: 1. Exam remains limited. Evaluation of the liver is best accomplished with contrasted CT or MRI. Myocardial Perfusion Scan Nuc Med 02/12/18 00:00 CONCLUSION: 1. There are no fixed or reversible perfusion defects seen, however, both right and left ventricles are dilated and there is diffuse hypokinesis present with a low ejection fraction. Discharge Plan Discharge Disposition Patient Disposition: Discharge Home Discharge Condition Condition: Stable Discharge Order Discharge Orders: Discharge Order (Routine); Ordered 02/14/18 Ordered By: Donna Mark ED Use Only Admit Order (Routine); Ordered 02/10/18 Ordered By: Francia Contreras Discharge Details Anticipated Discharge Date: 02/14/18 Discharge Comment: d/c after CT abdomen results are back and cleared by Cardiology Physicians Team ED Provider: Francia Contreras Primary Care Provider: Primary Care Meredith Santiago Attending Provider: Donna Mark Other Providers: Riki Sigala Rxs /Orders / Referrals /Forms Prescriptions: New carvedilol [Coreg] 6.25 mg Tablet 12.5 mg PO BID Qty: 30 RF: 0 insulin detemir U-100 [Levemir U-100 Insulin] 100 unit/mL Solution 8 unit subcut HS Qty: 30 RF: 0 Continue cyclobenzaprine 10 mg Tablet 10 mg PO TID PRN (Reason: Muscle Spasm) RF: 0 gabapentin 600 mg Tablet 600 mg PO BID RF: 0 meclizine 25 mg Tablet 25 mg PO DAILY PRN (Reason: Nausea) RF: 0 omeprazole magnesium [Prilosec OTC] 20 mg Tablet,Delayed Release (Dr/Ec) 20 mg PO DAILY RF: 0 potassium chloride 10 mEq capsule, extended release 10 meq PO DAILY Qty: 30 RF: 0 bumetanide 2 mg tablet 2 mg PO DAILY Qty: 30 RF: 0 ondansetron [Zofran ODT] 4 mg tablet,disintegrating 4 mg PO Q6-8H PRN (Reason: nausea and vomiting) Qty: 20 RF: 0 Discontinued furosemide 20 mg Tablet 40 mg PO BID RF: 0 Ambulatory Orders / Order Sets / DME: Basic Metabolic Panel (Routine) Timeframe: 3 Days Location: Determined by Patient Ordered By: Donna Mark Referrals: Primary Care Meredith Santiago [Primary Care Provider] - See Instructions Status ED Status: Left Department
--- NOTE | 2018-02-14 09:54 | CT ---
EXAM DATE: 02/14/2018 9:35 AM EST AGE/SEX: 52 years / Male INDICATIONS: History of liver mass. Evaluate status of liver mass. CLINICAL DATA: This is the patient's initial encounter. Patient reports that signs and symptoms have been present for 1 day and indicates a pain score of 7/10. MEDICAL/SURGICAL HISTORY: Congestive heart failure. Diabetes. . hernia repair ORAL CONTRAST: No oral contrast ingested. RADIATION DOSE: 10.31 CTDI (mGy) COMPARISON: [facility], CT ABDOMEN & PELVIS W/O CONTRAST, 06/03/2017. [facility] [place], US ABDOMEN LIVER, 02/11/2018 . PO, CT PULMONARY ANGIOGRAM, 03/21/2017. . TECHNIQUE: Multiple contiguous axial images were obtained through the abdomen following bolus infusi on of 95 ml Omnipaque 350 (iohexol) nonionic water-soluble contrast as a single exam dose. No oral contrast ingested. Using automated exposure control and adjustment of the mA and/or kV according to patient size, radiation dose was kept as low as reasonably achievable to obtain optimal diagnostic qu ality images. DICOM format image data is available electronically for review and comparison. FINDINGS: Lower Lungs: There is a small right-sided pleural effusion. Moderate cardiomegaly. Liver: The liver is significant for reflux of contrast into the hepatic veins secondary to congestive heart failure. There is a low-density mass identified within the right lobe of the liver measuring a pproximately 3.7 cm in greatest dimension. This appears to demonstrate peripheral discontinuous enhan cement. Given the increased echogenicity seen on comparison ultrasound findings are compatible with a hemangioma. There is a small amount of free fluid seen adjacent to the right lobe of the liver. Ther e is no evidence of intrahepatic biliary ductal obstruction. Gallbladder is moderately distended with mild diffuse wall thickening. Spleen: Homogeneous density without enlargement. Pancreas: Unremarkable without mass or calcification. Kidneys: Normal in size and shape. No evidence of mass or hydronephrosis. Adrenal Glands: Unremarkable. Aorta/Retroperitoneum: The aorta is grossly unremarkable without aneurysmal dilation. No paraaortic or retrocrural adenopathy. Bowel/Mesentery: The bowel loops are grossly unremarkable. Abdominal Wall: Intact. Bony Structures: Unremarkable. CONCLUSION: 1. Cardiomegaly with signs of congestive heart failure. Small right-sided pleural effusion, similar to that seen on prior exams. 2. Imaging characteristics of the hepatic mass are consistent with benign hemangioma. Electronically signed by: Rosalva Benito MD Board Certified Radiologist 02/14/2018 9:52 AM JEY T
[2018-02-14] MEDS: Insulin Detemir Inj 1,000 UNIT/10 ML Vial SQ SCH (21:14)
[2018-02-15] MEDS: Heparin - SQ 10,000 UNITS/ML Vial SQ SCH ×2 (05:59→13:44)
[2018-02-15] MEDS: Insulin NovoLOG Aspart Correctional Sugar Inj SQ SCH ×2 (08:44→13:27)
[2018-02-15] MEDS: Carvedilol 6.25 MG Tablet PO SCH (08:49)
[2018-02-15] MEDS: Pantoprazole Sodium 20 MG DR Tablet PO SCH (08:49)
[2018-02-15] MEDS: Gabapentin 300 MG Capsule PO SCH (08:49)
[2018-02-15] MEDS: Potassium Chloride 10 MEQ ER Capsule PO SCH (08:49)
--- NOTE | 2018-02-15 09:06 | P.PNCA ---
Subjective Interval history: Patient seen by Dr. Sigala and reports breathing is improved. Telemetry reviewed with occasional PVCs, no further NSVT noted over the weekend. Medications and Allergies Active Medications: Active Medications Acetaminophen (Tylenol) 650 mg PO Q4H PRN PRN Reason: Temp > 100.4 Last Admin: 02/12/18 16:41 Dose: 650 mg Al Hydroxide/Mg Hydroxide (Milk Of Magnesia Liq) 30 ml PO Q12H PRN PRN Reason: Mild Constipation Bisacodyl (Dulcolax Supp) 10 mg RECTAL DAILY PRN PRN Reason: SEVERE CONSITIPATION Carvedilol (Coreg) 12.5 mg PO BID [facility] Last Admin: 02/15/18 08:49 Dose: 12.5 mg Cyclobenzaprine HCl (Flexeril) 5 mg PO Q8H PRN PRN Reason: back spasm Last Admin: 02/14/18 20:12 Dose: 5 mg Dextrose (D50w Vial) 50 ml IV.PUSH UNSCH PRN PRN Reason: PER HYPOGLYCEMIA PROTOCOL Diphenhydramine HCl (Benadryl) 25 mg PO HS PRN PRN Reason: INSOMNIA Last Admin: 02/12/18 22:10 Dose: 25 mg Gabapentin (Neurontin) 600 mg PO BID [facility] Last Admin: 02/15/18 08:49 Dose: 600 mg Glucagon (Glucagon Inj) 1 mg OTHER PRN PRN PRN Reason: for Hypoglycemia Protocol Heparin Sodium (Porcine) (Heparin Inj) 5,000 units SQ Q8HR [facility] Last Admin: 02/15/18 05:59 Dose: 5,000 units Insulin Aspart (Novolog Insulin Correctional Sugar Inj) 0 unit SQ [facility]; Protocol Last Admin: 02/15/18 08:44 Dose: Not Given Insulin Detemir (Levemir Inj) 8 unit SQ HS [facility] Last Admin: 02/14/18 21:14 Dose: 8 unit Lactulose (Lactulose Liq) 30 ml PO DAILY PRN PRN Reason: SEVERE CONSITIPATION Losartan Potassium (Cozaar) 25 mg PO DAILY [facility] Ondansetron HCl (Zofran Inj) 4 mg IV.PUSH Q6H PRN PRN Reason: NAUSEA OR VOMITING Last Admin: 02/15/18 08:50 Dose: 4 mg Pantoprazole Sodium (Protonix) 20 mg PO DAILY [facility] Last Admin: 02/15/18 08:49 Dose: 20 mg Potassium Chloride (Kcl) 10 meq PO DAILY [facility] Last Admin: 02/15/18 08:49 Dose: 10 meq Sennosides (Senokot) 17.2 mg PO Q12H PRN PRN Reason: Moderate Constipation Sodium Chloride (Ns Flush) 2 ml IV.FLUSH BID [facility] Last Admin: 02/15/18 08:50 Dose: 2 ml Sodium Chloride (Ns Flush) 2 ml IV.FLUSH PRN PRN PRN Reason: FLUSH AFTER USING IV ACCESS Allergies Allergy/AdvReac Type Severity Reaction Status Date / Time lisinopril Allergy Severe Swelling Verified 01/08/18 09:38 Sulfa (Sulfonamide Allergy Severe Anaphylaxis Verified 01/08/18 09:38 Antibiotics) Home Medications Medication Instructions Recorded Confirmed Type cyclobenzaprine 10 mg PO TID PRN 01/08/18 02/10/18 History furosemide 40 mg PO BID 01/08/18 02/10/18 History gabapentin 600 mg PO BID 01/08/18 02/10/18 History meclizine 25 mg PO DAILY PRN 01/08/18 02/10/18 History omeprazole magnesium [Prilosec OTC] 20 mg PO DAILY 01/08/18 02/10/18 History Physical Exam Vital signs: Vital Signs 02/14/18 10:00 02/14/18 11:00 02/14/18 12:00 Temperature 97.2 F L Pulse Rate 78 88 78 Respiratory Rate 20 Blood Pressure 116/83 Pulse Oximetry 94 L 94 L 02/14/18 13:00 02/14/18 14:00 02/14/18 15:00 Temperature 97.8 F Pulse Rate 80 84 80 Respiratory Rate 20 Blood Pressure 111/76 Pulse Oximetry 94 L 02/14/18 16:00 02/14/18 17:00 02/14/18 18:00 Temperature Pulse Rate 80 84 85 Respiratory Rate Blood Pressure Pulse Oximetry 96 02/14/18 19:00 02/14/18 20:00 02/14/18 21:00 Temperature 98.1 F Pulse Rate 92 H 86 84 Respiratory Rate 20 Blood Pressure 119/89 Pulse Oximetry 95 95 02/14/18 22:00 02/14/18 23:00 02/15/18 00:00 Temperature Pulse Rate 90 83 80 Respiratory Rate 20 Blood Pressure 98/55 L Pulse Oximetry 94 L 12/17/18 01:00 02/15/18 02:00 02/15/18 03:00 Temperature Pulse Rate 82 80 83 Respiratory Rate Blood Pressure Pulse Oximetry 02/15/18 04:00 02/15/18 05:00 02/15/18 05:02 Temperature Pulse Rate 84 82 86 Respiratory Rate 16 Blood Pressure 115/77 Pulse Oximetry 94 L 02/15/18 06:00 Temperature Pulse Rate 85 Respiratory Rate Blood Pressure Pulse Oximetry Intake & Output 02/14/18 02/15/18 02/15/18 18:59 06:59 18:59 Intake Total 1200 / 1200 480 / 480 Balance 1200 / 1200 480 / 480 Weight 189 lb 9.561 oz Intake: Oral 1200 / 1200 480 / 480 Other: # Voids 10 4 Date of Last Bowel Movement 02/14/18 02/11/18 # Bowel Movements 2 Narrative: GENERAL: Well-developed well-nourished. CARDIOVASCULAR: Regular rate and rhythm. No murmur appreciated. RESPIRATORY: Clear to auscultation bilaterally. No crackles. Gastrointestinal: Abdomen soft, nontender, no hepatic mass appreciated. MUSCULOSKELETAL: No clubbing or cyanosis. Chronic venous stasis skin changes with trace pitting edema. NEUROLOGICAL: Awake and alert. Normal speech. Results 02/11/18 07:22 02/14/18 05:50 Comprehensive Metabolic Panel 02/14/18 Range/Units 05:50 Sodium 136 (136-145) meq/L Potassium 3.6 (3.5-5.1) meq/L Chloride 101 (98-107) meq/L Carbon Dioxide 26.8 (21.0-32.0) meq/L BUN 21 H (7-18) mg/dL Creatinine 1.24 (0.60-1.30) mg/dL Calcium 8.1 L (8.5-10.1) mg/dL Intake and Output 02/14/18 02/15/18 02/15/18 22:59 06:59 14:59 Intake Total 1200 / 1200 480 / 480 Balance 1200 / 1200 480 / 480 Intake: Oral 1200 / 1200 480 / 480 Other: # Voids 10 4 Date of Last Bowel Movement 02/11/18 02/11/18 # Bowel Movements 2 Weight 189 lb 9.561 oz - Imaging and Cardiology Imaging: Impressions Myocardial Perfusion Scan Nuc Med 02/12/18 00:00 CONCLUSION: 1. There are no fixed or reversible perfusion defects seen, however, both right and left ventricles are dilated and there is diffuse hypokinesis present with a low ejection fraction. Abdomen CT 02/14/18 00:00 CONCLUSION: 1. Cardiomegaly with signs of congestive heart failure. Small right-sided pleural effusion, similar to that seen on prior exams. 2. Imaging characteristics of the hepatic mass are consistent with benign hemangioma. Assessment and Plan - Plan 52-year-old male with chronic systolic CHF who presented for CHF exacerbation. CHF exacerbation: Improved. Resume Bumex 2 mg daily, previous diuretic dose per last ED note. Cardiomyopathy, chronic, nonischemic: Has not been on OMT. Carvedilol resumed at 12.5 mg twice daily and tolerating. DEB and hypotension improved, resume losartan 25 mg daily with lisinopril allergy. Patient needs close follow-up with cardiology at discharge, please provide patient information for Dr. Oswald for follow-up. Consideration should be made for AICD implantation after 3 months of OMT. NSVT: Short runs in the setting of hypervolemia. Echocardiogram 02/12 with EF 2025%, stable from previous. Lexiscan 02/14 with dilated cardiomyopathy, no ischemia. Continue beta-scott. Discharge planning. Please call with questions. Discussed Condition With: Dr. Sigala
== END 2018-02-15 14:16 | disposition home or self-care (01) ==
LOC: PHED 03:19 → PHEDA 05:04 → HCIS 08:19
PROVIDERS: ADMIT Hospitalist; ATTEND Hospitalist
DX: I50.23 Acute on chronic systolic (congestive) heart failure; K21.9 Gastro-esophageal reflux disease without esophagitis; Z79.4 Long term (current) use of insulin; I11.0 Hypertensive heart disease with heart failure; I25.10 Atherosclerotic heart disease of native coronary artery without angina pectoris; I47.2 Ventricular tachycardia; I87.8 Other specified disorders of veins; M54.9 Dorsalgia, unspecified; I45.10 Unspecified right bundle-branch block; Z88.8 Allergy status to other drugs, medicaments and biological substances; E11.40 Type 2 diabetes mellitus with diabetic neuropathy, unspecified; N17.9 Acute kidney failure, unspecified; I95.9 Hypotension, unspecified; Z87.891 Personal history of nicotine dependence; Z88.2 Allergy status to sulfonamides; R16.0 Hepatomegaly, not elsewhere classified; R74.8 Abnormal levels of other serum enzymes; G89.29 Other chronic pain; I42.0 Dilated cardiomyopathy; Z91.19 Patient's noncompliance with other medical treatment and regimen; E11.65 Type 2 diabetes mellitus with hyperglycemia